=== PATIENT | female | born 1960 | race Caucasian/White ===

== ENCOUNTER 2018-06-26 20:07 | Observation (INO) | payer OTHER ==
--- NOTE | 2018-06-26 21:44 | RADIOLOGY REPORT (SQ) ---
US ABDOMEN LIMITED HISTORY: Right upper quadrant pain. COMPARISON: None. TECHNIQUE: Grayscale and color Doppler imaging of the right upper quadrant was performed. FINDINGS: The liver measures 15.6 cm. Normal liver echogenicity. Mobile shadowing gallstones are seen No pericholecystic fluid or gallbladder wall thickening. Common bile duct measures 5 mm and contains a shadowing echogenic structure which may represent a gallstone. Visualized pancreas is unremarkable. Right kidney measures 10.2 cm in length, without hydronephrosis. Visualized portions of the IVC and aorta are patent. IMPRESSION: Cholelithiasis without evidence of acute cholecystitis. Likely small gallstone in the CBD.
[2018-06-26 22:11] LABS: ABSOLUTE BASOPHILS # (AUTO) 0.1 10^3/uL (0.0-0.2); ABSOLUTE EOSINOPHILS # (AUTO) 0.4 10^3/uL (0.0-0.6); ABSOLUTE LYMPHOCYTES (AUTO) 2.4 10^3/uL (0.5-4.7); ABSOLUTE MONOCYTES (AUTO) 1.1 10^3/uL (0.1-1.4); ABSOLUTE NEUT (AUTO) 12.6 10^3/uL (1.7-8.2); BASOPHILS % (AUTO) 0.4 % (0-2); EOSINOPHILS % (AUTO) 2.4 % (0-6); HEMATOCRIT 41.2 % (36.0-47.0); HEMOGLOBIN 13.7 g/dL (12.0-15.5); LYMPHOCYTES % (AUTO) 14.4 % (13-45); MEAN CORPUSCULAR HEMOGLOBIN 28.7 pg (27.0-33.4); MEAN CORPUSCULAR HGB CONC 33.2 g/dL (32.0-36.0); MEAN CORPUSCULAR VOLUME 86 fl (80-97); MONOCYTES % (AUTO) 6.9 % (3-13); PLATELET COUNT 338 10^3/uL (150-450); RED BLOOD COUNT 4.77 10^6/uL (3.72-5.28); RED CELL DISTRIBUTION WIDTH 17.2 % (11.5-14.0); SEGMENTED NEUTROPHILS % (AUTO) 75.9 % (42-78); TOTAL CELLS COUNTED % (AUTO) 100 %; WHITE BLOOD COUNT 16.7 10^3/uL (4.0-10.5)
[2018-06-26 22:22] LABS: AMORPHOUS SEDIMENT,URINE TRACE /HPF; APPEARANCE,URINE CLOUDY; BILIRUBIN,URINE NEGATIVE (NEGATIVE); COLOR,URINE YELLOW; GLUCOSE, URINE NEGATIVE (NEGATIVE); KETONES,URINE NEGATIVE (NEGATIVE); LEUKOCYTE ESTERASE,URINE NEGATIVE (NEGATIVE); NITRITE,URINE NEGATIVE (NEGATIVE); PROTEIN,URINE NEGATIVE (NEGATIVE); URINE SPECIFIC GRAVITY 1.016
[2018-06-26 22:29] LABS: ALANINE AMINOTRANSFERASE 44 U/L (9-52); ALBUMIN 4.8 g/dL (3.5-5.0); ALKALINE PHOSPHATASE 99 U/L (38-126); ANION GAP 14 (5-19); ASPARTATE AMINO TRANSFERASE 85 U/L (14-36); BILIRUBIN,DIRECT 0.4 mg/dL (0.0-0.4); BILIRUBIN,TOTAL 0.5 mg/dL (0.2-1.3); BLOOD UREA NITROGEN 22 mg/dL (7-20); CALCIUM 9.9 mg/dL (8.4-10.2); CARBON DIOXIDE 28 mmol/L (22-30); CHLORIDE 103 mmol/L (98-107); GLUCOSE 105 mg/dL (75-110); LIPASE 485.3 U/L (23-300); SODIUM 145.1 mmol/L (137-145); TOTAL PROTEIN 8.7 g/dL (6.3-8.2)
[2018-06-26] MEDS ORDERED: METRONIDAZOLE 500 MG/NS RTU 500 MG/100 ML RTUPB IV ONE (23:04)
[2018-06-26] MEDS ORDERED: CEFTRIAXONE INJ 1000 MG VIAL IV ONE (23:04)
[2018-06-26] MEDS ORDERED: KETOROLAC TROMETHAMINE INJ/PF 30 MG/1 ML SDV IV ONE (23:05)
[2018-06-26] MEDS ORDERED: NORMAL SALINE 1000 ML 1,000 ML IV ONE (23:05)
--- NOTE | 2018-06-26 23:29 | ER Document Report ---
ED General - General Chief Complaint: Abdominal Pain >50 Stated Complaint: SIDE/BACK PAIN Time Seen by Provider: 06/26/18 20:51 Notes: Patient is a 57-year-old female without chronic medical problems who presents with right upper and epigastric abdominal pain that started after eating. Patient states that when the pain was present it was a severe, stabbing, aching pain to the upper abdomen that radiated into the upper back. States that the pain has significantly improved since that time. She did not notice that anything in particular seem to resolve her pain. States the pain was triggered by food intake. She has had similar symptoms multiple times in the past related to "a gallbladder problem" but states that multiple evaluations never revealed any stones so the gallbladder was never removed. States that she has had associated nausea and vomiting with this pain today. Denies associated fever or diarrhea. She has not seen her primary care doctor regarding today's concerns. She denies chest pain, shortness of breath, cough. TRAVEL OUTSIDE OF THE [place] IN LAST 30 DAYS: No - Related Data Allergies/Adverse Reactions: Penicillins Allergy (Verified 06/26/18 20:13) Past Medical History - General Information source: Patient - Social History Smoking Status: Current Every Day Smoker Chew tobacco use (# tins/day): No Frequency of alcohol use: Occasional Drug Abuse: None Lives with: Family Family History: Reviewed & Not Pertinent Patient has suicidal ideation: No Patient has homicidal ideation: No Renal/ Medical History: Denies: Hx Peritoneal Dialysis Musculoskeletal Medical History: Reports Hx Arthritis - psoriacic arthritis Past Surgical History: Reports: Hx Appendectomy, Hx Breast Surgery - breast augmentation, Hx Section, Hx Genitourinary Surgery, Hx Hysterectomy, Hx Orthopedic Surgery - laminectomy, spinal fusion, Hx Tonsillectomy Review of Systems - Review of Systems Notes: Constitutional: Negative for fever. HENT: Negative for sore throat. Eyes: Negative for visual changes. Cardiovascular: Negative for chest pain. Respiratory: Negative for shortness of breath. Gastrointestinal: Positive for abdominal pain and vomiting Genitourinary: Negative for dysuria. Musculoskeletal: Negative for back pain. Skin: Negative for rash. Neurological: Negative for headaches, weakness or numbness. 10 point ROS negative except as marked above and in HPI. Physical Exam - Vital signs Vitals: Temp Pulse Resp BP Pulse Ox 97.5 F 68 16 120/67 99 06/26/18 20:31 06/26/18 20:31 06/26/18 20:31 06/26/18 20:31 06/26/18 20:31 Interpretation: Normal Notes: PHYSICAL EXAMINATION: GENERAL: Well-appearing, well-nourished and in no acute distress. HEAD: Atraumatic, normocephalic. EYES: Pupils equal round and reactive to light, extraocular movements intact, sclera anicteric, conjunctiva are normal. ENT: nares patent, oropharynx clear without exudates. Moderate dry mucous membranes. NECK: Normal range of motion, supple without lymphadenopathy LUNGS: Breath sounds clear to auscultation bilaterally and equal. No wheezes rales or rhonchi. HEART: Regular rate and rhythm without murmurs ABDOMEN: Soft, mild tenderness to the right upper quadrant epigastrium otherwise no localized tenderness, normoactive bowel sounds. No guarding, no rebound. No masses appreciated. EXTREMITIES: Normal range of motion, no pitting or edema. No cyanosis. NEUROLOGICAL: No focal neurological deficits. Moves all extremities spontaneously and on command. PSYCH: Normal mood, normal affect. SKIN: Warm, Dry, normal turgor, no rashes or lesions noted. Course - Re-evaluation Re-evalutation: 06/26/18 23:28 Patient presents with right upper quadrant abdominal pain with associated nausea and vomiting. Laboratories show leukocytosis, no significant LFT derangements or elevation of bilirubin. Slight elevation of lipase. Right upper quadrant ultrasound shows evidence of cholelithiasis without evidence of acute cholecystitis. However there is notable possible stone in the common bile duct. This however is not supported by the patient's laboratories itself. I discussed this case with the surgeon compensation expert Dr. Rojas who will evaluate the patient 06/26/18 23:[address] Rojas who is excepted the patient for admission and operative management - Vital Signs Vital signs: Temp Pulse Resp BP Pulse Ox 97.4 F 69 18 132/69 H 98 06/27/18 02:37 06/27/18 02:37 06/27/18 02:37 06/27/18 02:37 06/27/18 02:46 - Laboratory Result Diagrams: 06/26/18 21:55 06/26/18 21:55 Laboratory results interpreted by me: 10/06/26/18 06/26/18 21:51 21:55 21:55 WBC 16.7 H RDW 17.2 H Absolute Neutrophils 12.6 H Sodium 145.1 H BUN 22 H AST 85 H Total Protein 8.7 H Lipase 485.3 H Urine Urobilinogen 2.0 H - Diagnostic Test Radiology reviewed: Reports reviewed Discharge - Discharge Clinical Impression: Symptomatic cholelithiasis, Right upper quadrant abdominal pain Nausea and vomiting Qualifiers: Vomiting type: unspecified Vomiting Intractability: non-intractable Qualified Code(s): R11.2 - Nausea with vomiting, unspecified Condition: Fair Disposition: ADMITTED OBSERVATION Admitting Provider: Surgicalist Unit Admitted: Surgical Floor
--- NOTE | 2018-06-27 00:09 | PDOC H&P ---
History of Present Illness Patient complains of: Abdominal pain, nausea and vomiting History of Present Illness: OMERO MONAHAN is a 57 year old female who was brought to the emergency room by ground rescue plenty of acute onset abdominal pain nausea vomiting anorexia and subcostal pain on the right side which started approximately 630 this evening after having a light meal. There was no diarrhea. She was seen in the emergency department where she found to have right upper quadrant tenderness, leukocytosis, ultrasound showing multiple gallstones, normal common bile duct to 5 mm but a possible common bile duct stone. Surgery was consulted and she was advised admission According the patient she has had over 20 years of postprandial right upper quadrant pain attributed to her gallbladder although her gallbladder was never removed because "" it had no stones. Strong family history of gallbladder problems in her mother, and grandmother who had gallstone pancreatitis. Patient 's last colonoscopy was 5 years ago, reportedly normal. She denies chronic gastrointestinal problems. Past Medical History Past Medical History: Psoriatic arthritis, migraine headaches, hypothyroidism, tonic low back pain. Musculoskeltal Medical History: Reports: Arthritis - psoriacic arthritis Past Surgical History Past Surgical History: Reports: Appendectomy, Section, Hysterectomy, Orthopedic Surgery - laminectomy, spinal fusion, Tonsillectomy Social History Smoking Status: Current Every Day Smoker Hx Recreational Drug Use: No Drugs: None Hx Prescription Drug Abuse: No Family History Parental Family History Reviewed: Yes Children Family History Reviewed: Yes Sibling(s) Family History Reviewed.: Yes Medication/Allergy Allergies/Adverse Reactions: Penicillins Allergy (Verified 06/26/18 20:13) Review of Systems Constitutional: ABSENT: chills, fever(s), headache(s), weight gain, weight loss Eyes: ABSENT: visual disturbances Ears: ABSENT: hearing changes Cardiovascular: ABSENT: chest pain, dyspnea on exertion, edema, orthropnea, palpitations Respiratory: ABSENT: cough, hemoptysis Gastrointestinal: PRESENT: as per HPI Genitourinary: ABSENT: dysuria, hematuria Musculoskeletal: ABSENT: joint swelling Integumentary: ABSENT: rash, wounds Neurological: ABSENT: abnormal gait, abnormal speech, confusion, dizziness, focal weakness, syncope Psychiatric: ABSENT: anxiety, depression, homidical ideation, suicidal ideation Physical Exam Vital Signs: Temp Pulse Resp BP Pulse Ox 97.5 F 68 16 120/67 99 06/26/18 20:31 06/26/18 20:31 06/26/18 20:31 06/26/18 20:31 06/26/18 20:31 Intake & Output 06/25/18 06/26/18 06/27/18 06:59 06:59 06:59 Weight 70.76 kg General appearance: PRESENT: no acute distress Head exam: PRESENT: normocephalic Eye exam: PRESENT: EOMI Mouth exam: PRESENT: dry mucosa Respiratory exam: PRESENT: clear to auscultation keyona Cardiovascular exam: PRESENT: RRR Pulses: PRESENT: normal carotid pulses, normal radial pulses, normal femoral pulses Rectal exam: PRESENT: deferred Musculoskeletal exam: PRESENT: full ROM Neurological exam: PRESENT: alert, awake, oriented to person, oriented to place Results Laboratory Results: 06/26/18 21:55 06/26/18 21:55 06/26/18 06/26/18 06/26/18 21:51 21:55 21:55 WBC 16.7 H RBC 4.77 Hgb 13.7 Hct 41.2 MCV 86 MCH 28.7 MCHC 33.2 RDW 17.2 H Plt Count 338 Seg Neutrophils % 75.9 Lymphocytes % 14.4 Monocytes % 6.9 Eosinophils % 2.4 Basophils % 0.4 Absolute Neutrophils 12.6 H Absolute Lymphocytes 2.4 Absolute Monocytes 1.1 Absolute Eosinophils 0.4 Absolute Basophils 0.1 Sodium 145.1 H Potassium 4.0 Chloride 103 Carbon Dioxide 28 Anion Gap 14 BUN 22 H Creatinine 0.91 Est GFR ( Amer) > 60 Est GFR (Non-Af Amer) > 60 Glucose 105 Calcium 9.9 Total Bilirubin 0.5 AST 85 H ALT 44 Alkaline Phosphatase 99 Total Protein 8.7 H Albumin 4.8 Lipase 485.3 H Urine Color YELLOW Urine Appearance CLOUDY Urine pH 7.0 Ur Specific [place] 1.016 Urine Protein NEGATIVE Urine Glucose (UA) NEGATIVE Urine Ketones NEGATIVE Urine Blood NEGATIVE Urine Nitrite NEGATIVE Ur Leukocyte Esterase NEGATIVE Impressions: Abdomen Ultrasound 06/26/18 20:51 IMPRESSION: Cholelithiasis without evidence of acute cholecystitis. Likely small gallstone in the CBD. Assessment & Plan - Diagnosis (1) Gallstone pancreatitis Is this a current diagnosis for this admission?: Yes Plan: Impression: Acute cholecystitis, cholelithiasis, likely gallstone pancreatitis; symptomatically improving; no evidence of sepsis I: Intermediate level of suspicion for common bile duct stone Recommendations: 1. Admit, IV fluids, n.p.o., intravenous antibiotics 2. We will check chest x-ray, EKG 3. We will repeat labs, tract lipase level. 4. Patient will benefit from interval laparoscopic cholecystectomy, possible open cholecystectomy with intraoperative cholangiography. The possibility of retained common bile duct stone with the need for postoperative ERCP discussed with patient. 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 This is under the direction of Dr. Carmichael of [place], vibrating screen operator. (6) Hypothyroidism Is this a current diagnosis for this admission?: Yes (7) Smoker Is this a current diagnosis for this admission?: Yes - Time Time Spent: 30 to 50 Minutes Smoking Cessation Education: over 10 minutes Medications reviewed and adjusted accordingly: Yes Anticipated discharge: Home - Inpatient Certification Based on my medical assessment, after consideration of the patient's comorbidities, presenting symptoms, or acuity I expect that the services needed warrant INPATIENT care.: Yes I certify that my determination is in accordance with my understanding of Medicare's requirements for reasonable and necessary INPATIENT services [42 CFR 412.3e].: Yes Medical Necessity: Need For IV Fluids, Need for Pain Control, Need for IV Antibiotics, Need for Surgery
[2018-06-27] MEDS ORDERED: KETOROLAC TROMETHAMINE 10 MG TABLET PO PRN (00:14)
[2018-06-27] MEDS ORDERED: KETOROLAC TROMETHAMINE INJ/PF 30 MG/1 ML SDV IV PRN (00:14)
[2018-06-27] MEDS ORDERED: ONDANSETRON HCL INJ/PF 4 MG/2 ML SDV IV PRN (00:14)
[2018-06-27] MEDS: RINGERS SOLUTION,LACTATED 1,000 ML IV PRN ×4 (02:03→17:40)
[2018-06-27] MEDS: CIPROFLOXACIN 400 MG/D5W RTU 400 MG/200 ML RTUPB IV SCH ×2 (10:50→21:40)
[2018-06-27] MEDS: MORPHINE SULFATE 10 MG/ML INJ IV PRN ×2 (10:58→17:44)
--- NOTE | 2018-06-27 12:44 | RADIOLOGY REPORT (SQ) ---
EXAM DESCRIPTION: CHEST 2 VIEWS COMPLETED DATE/TIME: 06/27/2018 8:27 am REASON FOR STUDY: preop COMPARISON: None. EXAM PARAMETERS: NUMBER OF VIEWS: two views TECHNIQUE: Digital Frontal and Lateral radiographic views of the chest acquired. RADIATION DOSE: NA LIMITATIONS: none FINDINGS: LUNGS AND PLEURA: No opacities, masses or pneumothorax. No pleural effusion. MEDIASTINUM AND HILAR STRUCTURES: No masses or contour abnormalities. HEART AND VASCULAR STRUCTURES: Heart normal size. No evidence for failure. BONES: No acute findings. HARDWARE: None in the chest. OTHER: No other significant finding. IMPRESSION: NO ACUTE RADIOGRAPHIC FINDING IN THE CHEST. TECHNICAL DOCUMENTATION: JOB ID: [id number] [employer]- All Rights Reserved Reading location - IP/workstation name: [email or web address]
[2018-06-27 14:48] LABS: ALANINE AMINOTRANSFERASE 41 U/L (9-52); ALBUMIN 3.3 g/dL (3.5-5.0); ALKALINE PHOSPHATASE 74 U/L (38-126); ANION GAP 8 (5-19); ASPARTATE AMINO TRANSFERASE 43 U/L (14-36); BILIRUBIN,DIRECT 0.2 mg/dL (0.0-0.4); BILIRUBIN,TOTAL 0.4 mg/dL (0.2-1.3); BLOOD UREA NITROGEN 17 mg/dL (7-20); CALCIUM 8.4 mg/dL (8.4-10.2); CARBON DIOXIDE 24 mmol/L (22-30); CHLORIDE 109 mmol/L (98-107); GLUCOSE 87 mg/dL (75-110); LIPASE 75.4 U/L (23-300); POTASSIUM 4.3 mmol/L (3.6-5.0); SODIUM 140.5 mmol/L (137-145); TOTAL PROTEIN 6.3 g/dL (6.3-8.2)
[2018-06-28] MEDS: MORPHINE SULFATE 10 MG/ML INJ IV PRN (00:20)
[2018-06-28] MEDS: RINGERS SOLUTION,LACTATED 1,000 ML IV PRN (03:32)
[2018-06-28 06:24] LABS: ABSOLUTE BASOPHILS # (AUTO) 0.1 10^3/uL (0.0-0.2); ABSOLUTE EOSINOPHILS # (AUTO) 0.4 10^3/uL (0.0-0.6); ABSOLUTE LYMPHOCYTES (AUTO) 3.6 10^3/uL (0.5-4.7); ABSOLUTE MONOCYTES (AUTO) 0.6 10^3/uL (0.1-1.4); ABSOLUTE NEUT (AUTO) 3.7 10^3/uL (1.7-8.2); BASOPHILS % (AUTO) 0.8 % (0-2); EOSINOPHILS % (AUTO) 4.6 % (0-6); HEMATOCRIT 34.2 % (36.0-47.0); LYMPHOCYTES % (AUTO) 43.3 % (13-45); MEAN CORPUSCULAR HEMOGLOBIN 28.8 pg (27.0-33.4); MEAN CORPUSCULAR HGB CONC 33.5 g/dL (32.0-36.0); MEAN CORPUSCULAR VOLUME 86 fl (80-97); MONOCYTES % (AUTO) 6.7 % (3-13); PLATELET COUNT 242 10^3/uL (150-450); RED BLOOD COUNT 3.97 10^6/uL (3.72-5.28); RED CELL DISTRIBUTION WIDTH 17.5 % (11.5-14.0); SEGMENTED NEUTROPHILS % (AUTO) 44.6 % (42-78); TOTAL CELLS COUNTED % (AUTO) 100 %; WHITE BLOOD COUNT 8.3 10^3/uL (4.0-10.5)
[2018-06-28 06:33] LABS: HEMOGLOBIN 11.5 g/dL (12.0-15.5)
[2018-06-28 06:47] LABS: ALANINE AMINOTRANSFERASE 33 U/L (9-52); ALBUMIN 3.6 g/dL (3.5-5.0); ALKALINE PHOSPHATASE 76 U/L (38-126); ANION GAP 10 (5-19); ASPARTATE AMINO TRANSFERASE 31 U/L (14-36); BILIRUBIN,DIRECT 0.1 mg/dL (0.0-0.4); BILIRUBIN,TOTAL 0.3 mg/dL (0.2-1.3); BLOOD UREA NITROGEN 12 mg/dL (7-20); CALCIUM 8.5 mg/dL (8.4-10.2); CARBON DIOXIDE 26 mmol/L (22-30); CHLORIDE 107 mmol/L (98-107); GLUCOSE 78 mg/dL (75-110); LIPASE 57.3 U/L (23-300); POTASSIUM 4.2 mmol/L (3.6-5.0); SODIUM 143.3 mmol/L (137-145); TOTAL PROTEIN 6.6 g/dL (6.3-8.2)
[2018-06-28] MEDS ORDERED: BUPIVACAINE HCL 0.5 % INJ/PF 30 ML SDV ONE (08:07)
[2018-06-28] MEDS ORDERED: MORPHINE SULFATE 10 MG/ML INJ ONE (08:21)
[2018-06-28] MEDS ORDERED: ONDANSETRON HCL INJ/PF 4 MG/2 ML SDV ONE (08:21)
[2018-06-28] MEDS ORDERED: DEXAMETHASONE SOD PHOSPHATE INJ 4 MG/1 ML VIAL ONE (08:21)
[2018-06-28] MEDS ORDERED: MIDAZOLAM 2 MG/2 ML INJ ONE (08:21)
[2018-06-28] MEDS ORDERED: FENTANYL CITRATE INJ/PF 100 MCG/2 ML AMPUL ONE (08:21)
[2018-06-28] MEDS ORDERED: ACETAMINOPHEN 1,000 MG/100 ML RTUPB IV ONE (08:22)
[2018-06-28] MEDS ORDERED: PROPOFOL INJ 200 MG/20 ML VIAL IV ONE (08:22)
[2018-06-28] MEDS ORDERED: IPRATROPIUM/ALBUTEROL 0.5-2.5 MG/3 ML AMPUL NEB ONE ×2 (08:24→08:28)
[2018-06-28] MEDS ORDERED: NEOSTIGMINE METHYLSULFATE 10 MG/10 ML VIAL ONE (08:40)
[2018-06-28] MEDS ORDERED: SCOPOLAMINE HYDROBROMIDE 1.5 MG PATCH.TD72 ONE (08:40)
[2018-06-28] MEDS ORDERED: SUCCINYLCHOLINE CHLORIDE INJ 200 MG/10 ML VIAL ONE (08:40)
[2018-06-28] MEDS ORDERED: GLYCOPYRROLATE 1 MG/5 ML SYRINGE ONE (08:40)
[2018-06-28] MEDS ORDERED: ROCURONIUM BROMIDE INJ 50 MG/5 ML VIAL IV ONE (08:40)
--- NOTE | 2018-06-28 08:59 | PDOC PROGRESS REPORT ---
Subjective Progress Note for:: 06/28/18 Subjective:: There is a 57-year-old female with biliary pancreatitis. She is feeling much better today. Her lab work is essentially normal. Denies nausea, vomiting, fevers, chills, melena, hematochezia, chest pain, shortness of breath, dizziness , orthostasis, malaise, blurry vision, or fatigue. She does report right upper quadrant abdominal pain. Reason For Visit: GALLSTONE PANCREATITUS Physical Exam Vital Signs: Temp Pulse Resp BP Pulse Ox 97.5 F 51 L 12 103/56 L 100 06/28/18 07:26 06/28/18 07:26 06/28/18 07:26 06/28/18 07:26 06/28/18 07:26 Intake & Output 06/27/18 06/28/18 06/29/18 06:59 06:59 06:59 Intake Total 1343 4111 Output Total 0 675 Balance 1343 3436 Weight 72.7 kg 76.4 kg General appearance: PRESENT: no acute distress Head exam: PRESENT: atraumatic, normocephalic Eye exam: PRESENT: EOMI, PERRLA Mouth exam: PRESENT: moist, neck supple Neck exam: ABSENT: meningismus, tenderness, thyromegaly, tracheal deviation Respiratory exam: PRESENT: clear to auscultation keyona, unlabored. ABSENT: chest wall tenderness, tachypnea Cardiovascular exam: PRESENT: RRR Pulses: PRESENT: normal radial pulses Vascular exam: PRESENT: normal capillary refill. ABSENT: pallor GI/Abdominal exam: PRESENT: tenderness - Upper quadrant/epigastrium. ABSENT: distended, firm Rectal exam: PRESENT: deferred Extremities exam: ABSENT: clubbing Musculoskeletal exam: ABSENT: deformity Neurological exam: PRESENT: alert, awake, oriented to person, oriented to place , oriented to time, oriented to situation, CN II-XII grossly intact Psychiatric exam: ABSENT: agitated, anxious, depressed Focused psych exam: ABSENT: delusional Skin exam: ABSENT: cyanosis, erythema, jaundice Results Laboratory Results: 06/28/18 05:25 06/28/18 05:25 06/27/18 06/28/18 06/28/18 13:40 05:25 05:25 WBC 8.3 RBC 3.97 Hgb 11.5 L D Hct 34.2 L MCV 86 MCH 28.8 MCHC 33.5 RDW 17.5 H Plt Count 242 Seg Neutrophils % 44.6 Lymphocytes % 43.3 Monocytes % 6.7 Eosinophils % 4.6 Basophils % 0.8 Absolute Neutrophils 3.7 Absolute Lymphocytes 3.6 Absolute Monocytes 0.6 Absolute Eosinophils 0.4 Absolute Basophils 0.1 Sodium 140.5 143.3 Potassium 4.3 4.2 Chloride 109 H 107 Carbon Dioxide 24 26 Anion Gap 8 10 BUN 17 12 Creatinine 0.70 0.69 Est GFR ( Amer) > 60 > 60 Est GFR (Non-Af Amer) > 60 > 60 Glucose 87 78 Calcium 8.4 8.5 Total Bilirubin 0.4 0.3 AST 43 H 31 ALT 41 33 Alkaline Phosphatase 74 76 Total Protein 6.3 6.6 Albumin 3.3 L 3.6 Lipase 75.4 57.3 Impressions: Abdomen Ultrasound 06/26/18 20:51 IMPRESSION: Cholelithiasis without evidence of acute cholecystitis. Likely small gallstone in the CBD. Chest X-Ray 06/27/18 08:00 IMPRESSION: NO ACUTE RADIOGRAPHIC FINDING IN THE CHEST. Assessment & Plan - Diagnosis (1) Gallstone pancreatitis Is this a current diagnosis for this admission?: Yes - Plan Summary Plan Summary: There is a 57-year-old female with biliary pancreatitis. Her lab work is much improved. I have recommended surgical intervention. I plan to perform laparoscopic cholecystectomy with intraoperative cholangiogram. The patient has agreed to this. Risks/benefits discussed, informed consent obtained, and all questions answered.
[2018-06-28] MEDS ORDERED: DIPHENHYDRAMINE HCL 50 MG/ML VIAL IV PRN (09:20)
[2018-06-28] MEDS ORDERED: MEPERIDINE HCL/PF INJ 25 MG/1 ML DISP.SYRIN IV PRN (09:20)
[2018-06-28] MEDS ORDERED: FENTANYL CITRATE INJ/PF 100 MCG/2 ML AMPUL IV PRN ×3 (09:20)
[2018-06-28] MEDS ORDERED: MORPHINE SULFATE 10 MG/ML INJ IV PRN (09:20)
[2018-06-28] MEDS ORDERED: PROMETHAZINE HCL INJ 25 MG/1 ML VIAL IV PRN ×2 (09:20)
--- NOTE | 2018-06-28 10:04 | EKG REPORT ---
SEVERITY:- OTHERWISE NORMAL ECG - SINUS BRADYCARDIA : Confirmed by: Annika Pickett 28-Jun-2018 10:03:09
[2018-06-28] MEDS ORDERED: HYDROCODONE/ACETAMINOPHEN 10-325 MG TABLET PO PRN (11:04)
[2018-06-28] MEDS: CIPROFLOXACIN 400 MG/D5W RTU 400 MG/200 ML RTUPB IV SCH (11:05)
--- NOTE | 2018-06-28 11:54 | RADIOLOGY REPORT (SQ) ---
EXAM DESCRIPTION: NO CHG FLUORO; CHOLANGIOGRAM OPERATIVE COMPLETED DATE/TIME: 06/28/2018 9:56 am REASON FOR STUDY: BLOCKAGE COMPARISON: None. FLUOROSCOPY TIME: 1.0 minutes 2 images saved to PACS. TECHNIQUE: Spot fluoroscopic images were obtained from an intraoperative cholangiogram. LIMITATIONS: None. FINDINGS: There is opacification of the bile ducts, cystic duct remnants and second portion of the d uodenum without evidence of fixed filling defect or significant extravasation. IMPRESSION: INTRAOPERATIVE CHOLANGIOGRAM. COMMENT: Quality ID 145: Final reports for procedures using fluoroscopy that document radiation exp osure indices, or exposure time and number of fluorographic images (if radiation exposure indices are not available) TECHNICAL DOCUMENTATION: JOB ID: [id number] [employer]- All Rights Reserved Reading location - IP/workstation name: [email or web address]
--- NOTE | 2018-06-28 11:54 | RADIOLOGY REPORT (SQ) ---
EXAM DESCRIPTION: NO CHG FLUORO; CHOLANGIOGRAM OPERATIVE COMPLETED DATE/TIME: 06/28/2018 9:56 am REASON FOR STUDY: BLOCKAGE COMPARISON: None. FLUOROSCOPY TIME: 1.0 minutes 2 images saved to PACS. TECHNIQUE: Spot fluoroscopic images were obtained from an intraoperative cholangiogram. LIMITATIONS: None. FINDINGS: There is opacification of the bile ducts, cystic duct remnants and second portion of the d uodenum without evidence of fixed filling defect or significant extravasation. IMPRESSION: INTRAOPERATIVE CHOLANGIOGRAM. COMMENT: Quality ID 145: Final reports for procedures using fluoroscopy that document radiation exp osure indices, or exposure time and number of fluorographic images (if radiation exposure indices are not available) TECHNICAL DOCUMENTATION: JOB ID: [id number] [employer]- All Rights Reserved Reading location - IP/workstation name: [email or web address]
[2018-06-28] MEDS: KETOROLAC TROMETHAMINE 10 MG TABLET PO PRN ×2 (16:27→22:28)
--- NOTE | 2018-06-28 19:36 | Operative Report ---
Nonrecallable Operative Report DATE OF SURGERY: 06/28/18 PREOPERATIVE DIAGNOSIS: 1 biliary pancreatitis. 2. Possible choledocholithiasis POSTOPERATIVE DIAGNOSIS: 1. Biliary pancreatitis. 2. No evidence of choledocholithiasis. OPERATION: Laparoscopic cholecystectomy with intraoperative cholangiogram. SURGEON: WILBERTO PRESSLEY ANESTHESIA: GA TISSUE REMOVED OR ALTERED: Gallbladder COMPLICATIONS: None apparent ESTIMATED BLOOD LOSS: Minimal PROCEDURE: Drains/implants: None. Procedure in detail: After informed consent was obtained, the patient was brought into the operating room and laid in the supine position. The area of the abdomen was prepped and draped in a normal sterile fashion. A periumbilical incision was created using a 15 blade scalpel. Dissection was carried through the subcutaneous tissue using sharp and blunt dissection. The cicatrix was identified, grasped with a Gill clamp, and retracted upwards. The linea alba fascia was incised sharply, the abdomen was entered sharply. The balloon trocar was inserted, and pneumoperitoneum was achieved. A 5 mm subxiphoid port was placed under direct laparoscopic visualization. 2 more 5 mm ports were placed in the right upper quadrant in similar fashion. Atraumatic graspers were placed through the 5 mm ports. The gallbladder was retracted cephalad and laterally. Dissection was begun in the triangle of [place]. The cystic duct and cystic artery were fully visualized and skeletonized , seeing the liver through the triangle. Once the critical view of safety was obtained, the cystic artery was clipped and cut with laparoscopic instruments. Next a clip was placed on the infundibulum side of the cystic duct, and a small ductotomy was created. The Arrow cholangiogram catheter was inserted into the cystic duct and a cholangiogram was obtained. The cholangiogram demonstrated filling of the common bile duct, common hepatic duct, right and left hepatic ducts, and their radicals. There were no obvious filling defects present within the bile ducts. Contrast moved freely into the duodenum. Once this was confirmed, the cholangiogram catheter was removed. Clips were placed on the cystic duct, and the duct was divided. The gallbladder was removed from the liver using Bovie electrocautery. The gallbladder was grasped with a large clamp, and pulled out through the umbilicus. The camera was reinserted. The hilum was inspected. It was found to be free of any leakage of blood or bile. Next, the 5 mm trochars were removed under direct laparoscopic visualization. The periumbilical trocar was removed, and pneumoperitoneum was relieved. The umbilical fascia was closed using 0 Vicryl suture in [id number] fashion. The overlying skin was closed using 4-0 Vicryl Rapide suture in subcuticular fashion. All sponge, instrument, and needle counts were correct x2. Condition: Stable.
[2018-06-29] MEDS: KETOROLAC TROMETHAMINE 10 MG TABLET PO PRN (05:09)
--- NOTE | 2018-06-29 06:34 | PDOC DISCHARGE SUMMARY ---
General - Admit/Disc Date/PCP Admission Date/Primary Care Provider: 06/27/18 00:09 Discharge Date: 06/29/18 - Discharge Diagnosis (1) Gallstone pancreatitis Is this a current diagnosis for this admission?: Yes - Additional Information Resuscitation Status: Full Code Discharge Diet: As Tolerated Discharge Activity: No Lifting Over 10 Pounds Home Medications: Cetirizine HCl [Zyrtec 10 mg Tablet] 1 tab PO DAILY 06/27/18 Duloxetine HCl [Cymbalta] 30 mg PO QHS 06/27/18 Estradiol [Estrace] 1.5 mg PO DAILY 06/27/18 Folic Acid 1 mg PO DAILY 06/27/18 Levothyroxine Sodium [Levoxyl] 88 mcg PO DAILY 06/27/18 Meloxicam 15 mg PO DAILY 06/27/18 Methotrexate Sodium [Methotrexate] 12.5 mg PO SA@1000 06/27/18 Secukinumab [Cosentyx Pen] 150 mg SQ [id number] 06/27/18 Topiramate [Topamax 100 Mg Tablet] 100 mg PO QHS 06/27/18 History of Present Illness History of Present Illness: OMERO MONAHAN is a 57 year old female admitted with biliary pancreatitis. The patient was admitted to the surgical floor and kept n.p.o. with the intent of surgical intervention. Hospital Course Hospital Course: The patient was admitted to the floor. Over the subsequent days her lipase trended downward, and she began to feel better. By 06/28/2018, the patient was doing well. She was taken to the operating room for laparoscopic cholecystectomy with intraoperative cholangiogram. Her surgery went well, without complication. The patient was taken to the floor afterwards in stable condition. By 06/29/2018 the patient was ambulating, tolerating a diet, and her pain was controlled with oral pain medications. At this time it was felt that she had reached maximal hospital benefit and was fit for discharge. Physical Exam Vital Signs: Temp Pulse Resp BP Pulse Ox 98.3 F 48 L 17 102/46 L 98 06/28/18 22:55 06/28/18 22:55 06/28/18 22:55 06/28/18 22:55 06/28/18 22:55 Intake & Output 06/27/18 06/28/18 06/29/18 06:59 06:59 06:59 Intake Total 1343 4111 3060 Output Total 0 675 2385 Balance 1343 3436 675 Weight 72.7 kg 76.4 kg 77.3 kg Results Laboratory Results: 06/28/18 05:25 06/28/18 05:25 06/28/18 06/28/18 05:25 05:25 WBC 8.3 RBC 3.97 Hgb 11.5 L D Hct 34.2 L MCV 86 MCH 28.8 MCHC 33.5 RDW 17.5 H Plt Count 242 Seg Neutrophils % 44.6 Lymphocytes % 43.3 Monocytes % 6.7 Eosinophils % 4.6 Basophils % 0.8 Absolute Neutrophils 3.7 Absolute Lymphocytes 3.6 Absolute Monocytes 0.6 Absolute Eosinophils 0.4 Absolute Basophils 0.1 Sodium 143.3 Potassium 4.2 Chloride 107 Carbon Dioxide 26 Anion Gap 10 BUN 12 Creatinine 0.69 Est GFR ( Amer) > 60 Est GFR (Non-Af Amer) > 60 Glucose 78 Calcium 8.5 Total Bilirubin 0.3 AST 31 ALT 33 Alkaline Phosphatase 76 Total Protein 6.6 Albumin 3.6 Lipase 57.3 Impressions: Abdomen Ultrasound 06/26/18 20:51 IMPRESSION: Cholelithiasis without evidence of acute cholecystitis. Likely small gallstone in the CBD. Chest X-Ray 06/27/18 08:00 IMPRESSION: NO ACUTE RADIOGRAPHIC FINDING IN THE CHEST. Cholangiogram 06/28/18 00:00 IMPRESSION: INTRAOPERATIVE CHOLANGIOGRAM. Fluoroscopy 06/28/18 00:00 IMPRESSION: INTRAOPERATIVE CHOLANGIOGRAM. Qualifiers - * PATIENT BEING DISCHARGED WITH ANY OF THE FOLLOWING DIAGNOSIS: No Plan Discharge Plan: Discharge home. Diet as tolerated. Activity: No lifting greater than 10 pounds x 2 weeks. Toradol 10 mg p.o. every 6 hours as needed for pain. Follow- up with me in 7-10 days. Okay to shower on Friday. No tub baths or swimming times 2 weeks. Time Spent: Less than 30 Minutes
[2018-06-29 08:37] VITALS: BP 126/53
== END 2018-06-29 09:33 | disposition home or self-care (01) ==
LOC: ER 20:07 → EH 06-27 00:09 → 4N 06-27 03:10
PROVIDERS: ATTEND Surgery
PROC: HZ31ZZZ Individual Counseling for Substance Abuse Treatment, Behavioral (ICD-10-PCS; principal; 2018-06-27)
PROC: 0FT44ZZ Resection of Gallbladder, Percutaneous Endoscopic Approach (ICD-10-PCS; 2018-06-28)
PROC: BF101ZZ Fluoroscopy of Bile Ducts using Low Osmolar Contrast (ICD-10-PCS; 2018-06-28)
DX: K80.10 Calculus of gallbladder with chronic cholecystitis without obstruction (principal); L40.50 Arthropathic psoriasis, unspecified; G43.909 Migraine, unspecified, not intractable, without status migrainosus; E03.9 Hypothyroidism, unspecified; F17.200 Nicotine dependence, unspecified, uncomplicated; Z79.899 Other long term (current) drug therapy; Z83.79 Family history of other diseases of the digestive system; Z90.49 Acquired absence of other specified parts of digestive tract; Z90.710 Acquired absence of both cervix and uterus
CPT/HCPCS: 99285; 96361; 96375; 96365; 96367; 36415 ×3; 87040; 83690 ×3; 85025 ×2; 80053 ×3; 81001; 88304 ×2; 71046; 74300; 76705; 93005; 93010; 99407; 47563; G0378 ×4; Q9967; J2250; J3490 ×5; J1100; J3010; J1885; J2270 ×2; J0330; J0696; J2405; J7030; J7120 ×2; J2704; J0744; J7620; J0131; 790

== ENCOUNTER 2019-11-21 12:55 | Emergency (ER) | payer OTHER ==
[2019-11-21] MEDS ORDERED: KETOROLAC TROMETHAMINE 60 MG/2 ML SDV IM ONE (13:12)
[2019-11-21] MEDS ORDERED: NORMAL SALINE 1000 ML 1,000 ML IV PRN (13:12)
[2019-11-21] MEDS ORDERED: KETOROLAC TROMETHAMINE INJ/PF 30 MG/1 ML SDV IV ONE (13:18)
--- NOTE | 2019-11-21 13:18 | ER Document Report ---
ED Medical Screen (RME) - General Chief Complaint: Flank Pain Stated Complaint: FLANK PAIN Time Seen by Provider: 11/21/19 13:11 Information source: Patient TRAVEL OUTSIDE OF THE [place] IN LAST 30 DAYS: No - HPI Notes: 11/21/19 13:17 This 59-year-old female presented emergency room today with right-sided flank pain radiating around to the groin she thinks it is a kidney stone as she has had one before she last had a CAT scan many years ago - Related Data Allergies/Adverse Reactions: Penicillins Allergy (Verified 11/21/19 13:13) Past Medical History - Social History Chew tobacco use (# tins/day): No Frequency of alcohol use: Occasional Drug Abuse: None Renal/ Medical History: Denies: Hx Peritoneal Dialysis Musculoskeltal Medical History: Reports Hx Arthritis - psoriacic arthritis Psychiatric Medical History: Denies: Hx Depression Past Surgical History: Reports: Hx Appendectomy, Hx Breast Surgery - breast augmentation, Hx Section, Hx Genitourinary Surgery, Hx Hysterectomy, Hx Orthopedic Surgery - laminectomy, spinal fusion, Hx Tonsillectomy Physical Exam - Vital signs Vitals: Temp Pulse Resp BP Pulse Ox 98.1 F 69 18 148/79 H 98 11/21/19 13:00 11/21/19 13:00 11/21/19 13:00 11/21/19 13:00 11/21/19 13:00 - Abdominal Inspection: Normal Distension: No distension Bowel sounds: Normal Tenderness: Nontender Organomegaly: No organomegaly Course - Vital Signs Vital signs: Temp Pulse Resp BP Pulse Ox 98.1 F 69 18 148/79 H 98 11/21/19 13:00 11/21/19 13:00 11/21/19 13:00 11/21/19 13:00 11/21/19 13:00
[2019-11-21] MEDS ORDERED: ONDANSETRON HCL INJ/PF 4 MG/2 ML SDV IV ONE (13:22)
[2019-11-21] MEDS ORDERED: TAMSULOSIN HCL 0.4 MG CAP.SR.24H PO ONE (13:26)
--- NOTE | 2019-11-21 13:28 | ER Document Report ---
ED General - General Chief Complaint: Flank Pain Stated Complaint: FLANK PAIN Time Seen by Provider: 11/21/19 13:11 TRAVEL OUTSIDE OF THE [place]. IN LAST 30 DAYS: No - HPI Notes: Patient is a 59-year-old female with a history of kidney stones presents complaining of sudden onset right flank pain that radiates around into her groin that began at 6 AM today. Patient states that she has had nausea and vomiting associated as well. The pain is intermittent. Patient states that she does have urinary urgency. No other vaginal bleeding, odor, discharge. She is able to eat and drink, but does have decreased p.o. intake. She is having normal bowel movements. Denies any headache, fever, neck pain, URI, sore throat, chest pain, palpitations, syncope, cough, shortness of breath, wheeze, dyspnea, diarrhea, urinary retention, loss of control of bowel or bladder, numbness/tingling, saddle anesthesia, muscle paralysis/weakness, or rash. - Related Data Allergies/Adverse Reactions: Penicillins Allergy (Verified 11/21/19 14:03) Past Medical History - General Information source: Patient - Social History Smoking Status: Current Every Day Smoker Chew tobacco use (# tins/day): No Frequency of alcohol use: Occasional Drug Abuse: None Family History: Reviewed & Not Pertinent Patient has suicidal ideation: No Patient has homicidal ideation: No Renal/ Medical History: Denies: Hx Peritoneal Dialysis Musculoskeletal Medical History: Reports Hx Arthritis - psoriacic arthritis Psychiatric Medical History: Denies: Hx Depression Past Surgical History: Reports: Hx Appendectomy, Hx Breast Surgery - breast augmentation, Hx Section, Hx Genitourinary Surgery, Hx Hysterectomy, Hx Orthopedic Surgery - laminectomy, spinal fusion, Hx Tonsillectomy Review of Systems - Review of Systems -: Yes All other systems reviewed and negative Physical Exam - Vital signs Vitals: Temp Pulse Resp BP Pulse Ox 98.1 F 69 18 148/79 H 98 11/21/19 13:00 11/21/19 13:00 11/21/19 13:00 11/21/19 13:00 11/21/19 13:00 - Notes Notes: PHYSICAL EXAMINATION: GENERAL: Well-appearing, well-nourished and in no acute distress. LUNGS: Breath sounds clear to auscultation bilaterally and equal. No wheezes rales or rhonchi. HEART: Regular rate and rhythm without murmurs, rubs, gallops. ABDOMEN: Soft, nontender, nondistended abdomen. No guarding, no rebound. Normal bowel sounds present. + right CVA tenderness. Musculoskeletal: FROM to passive/active. Strength 5+/5. Extremities: No cyanosis, clubbing, or edema b/l. Peripheral pulses 2+. Capillary refill less than 3 seconds. NEUROLOGICAL: Normal speech, normal gait. Normal sensory, motor exams PSYCH: Normal mood, normal affect. SKIN: Warm, Dry, normal turgor, no rashes or lesions noted. Course - Re-evaluation Re-evalutation: 11/21/19 15:42 I did review with Dr. Crouch, Urology, who agrees with dispo/plan: Patient is an afebrile, well-hydrated, 59-year-old female who presents to the ED with a 2mm ureteral stone to the rt side with hydronephrosis. Vitals are acceptable without any significant tachycardia, tachypnea, or hypoxia. PE is otherwise unremarkable. CMP unremarkable for acute pathology. CBC has leukocytosis, but she is on steroids and has been vomiting as well. UA looks like a UTI. UC pending. Patient was given Zofran and toradol as well as fluids. See CT report. No other labs or imaging warranted at this time based on H&P. Patient is tolerating p.o. without difficulties and is nontoxic- appearing. Low suspicion/risk for urosepsis, acute appendicitis, bowel obstruction, acute cholecystitis, perforated diverticulitis, incarcerated hernia, pancreatitis, perforated ulcer, peritonitis, sepsis, testicular torsion, or other systemic emergent condition at this time. Patient is aware that this condition can change from initial presentation and she needs to monitor symptoms closely and seek medical attention if any acute changes. I will send him home with a prescription for zofran, flomax, keflex, and morphine IR. If she develops any fever to come back to the ED or go to [facility] ED. Conservative measures otherwise for symptoms. Recheck with PCM in 2-3 days. Schedule consult with urologist. Return to the ED with any worsening/concerning symptoms otherwise as reviewed in discharge. Patient is in agreement. - Vital Signs Vital signs: Temp Pulse Resp BP Pulse Ox 98.1 F 69 18 148/79 H 98 11/21/19 13:00 11/21/19 13:00 11/21/19 13:00 11/21/19 13:00 11/21/19 13:00 - Laboratory Result Diagrams: 11/21/19 13:53 11/21/19 13:53 Laboratory results interpreted by me: 11/21/19 11/21/19 11/21/19 13:15 13:53 13:53 WBC 13.9 H RDW 15.7 H Lymph % (Auto) 8.7 L Absolute Neuts (auto) 11.5 H Seg Neutrophils % 82.9 H Sodium 136.4 L Urine Blood LARGE H Urine Nitrite (Reflex) POSITIVE H Urine Urobilinogen 2.0 H Urine Ascorbic Acid 40 H Discharge - Discharge Clinical Impression: Right ureteral stone Condition: Stable Disposition: HOME, SELF-CARE Additional Instructions: Push fluids (i.e. water, cranberry juice) Proper hygenic technique Keep the skin clean Tylenol/ibuprofen as needed Take medications as directed F/u with your PCM in 2-3 days for a recheck Call urology tomorrow to schedule an appointment for further evaluation and management--should you develop any fever to return to the emergency department or go to [facility] emergency department where they have urology available. Return to the ED with any worsening symptoms and/or development of fever, headache, chest pain, palpitations, syncope, shortness of breath, trouble breathing, abdominal pain, n/v/d, blood in stool/urine, loss of control of bowel/bladder, urinary retention, or other worsening symptoms that are concerning to you. Prescriptions: Tamsulosin HCl [Flomax] 0.4 mg PO DAILY #10 cap.er.24h Cephalexin Monohydrate [Keflex 500 mg Capsule] 500 mg PO TID #21 capsule Morphine Sulfate [Morphine Ir 15 Mg Tablet] 15 mg PO TID #12 tablet Ondansetron [Zofran Odt 4 mg Tablet] 1 - 2 tab PO Q4H PRN #15 tab.rapdis PRN Reason: For Nausea/Vomiting Forms: Elevated Blood Pressure Referrals: WAYNE CROUCH MD [NO LOCAL MD] - Follow up as needed [facility] [Provider Group] - Follow up in 3-5 days
[2019-11-21 13:40] LABS: APPEARANCE,URINE CLEAR; BILIRUBIN,URINE NEGATIVE (NEGATIVE); COLOR,URINE AMBER; GLUCOSE, URINE NEGATIVE (NEGATIVE); KETONES,URINE NEGATIVE (NEGATIVE); PROTEIN,URINE NEGATIVE (NEGATIVE)
--- NOTE | 2019-11-21 13:55 | RADIOLOGY REPORT (SQ) ---
EXAM DESCRIPTION: CT ABD/PELVIS NO ORAL OR IV COMPLETED DATE/TIME: 11/21/2019 1:33 pm REASON FOR STUDY: Rt flank pain COMPARISON: None. TECHNIQUE: CT scan of the abdomen and pelvis performed without intravenous or oral contrast. Images reviewed with lung, soft tissue, and bone windows. Reconstructed coronal and sagittal MPR images revi ewed. All images stored on PACS. All CT scanners at this facility use dose modulation, iterative reconstruction, and/or weight based d osing when appropriate to reduce radiation dose to as low as reasonably achievable (ALARA). [facility]: Dose Right [facility]: CareDose [facility]: Dose Right [facility]: Teradose 4D [facility]: Smart Cogo RADIATION DOSE: CT Rad equipment meets quality standard of care and radiation dose reduction techniq ues were employed. CTDIvol: 7.7 mGy. DLP: 370 mGy-cm.mGy. LIMITATIONS: None. FINDINGS: LOWER CHEST: No significant findings. No nodules or infiltrates. NON-CONTRASTED LIVER, SPLEEN, ADRENALS: Evaluation limited by lack of IV contrast. No identified sign ificant masses. PANCREAS: No masses. No peripancreatic inflammatory changes. GALLBLADDER: Surgically absent. RIGHT KIDNEY AND URETER: No suspicious masses. Assessment limited by lack of IV contrast. 2 mm ston e in the ureterovesical junction. Moderate hydronephrosis LEFT KIDNEY AND URETER: No suspicious masses. Assessment limited by lack of IV contrast. No signifi cant calcifications. No hydronephrosis or hydroureter. AORTA AND RETROPERITONEUM: No aneurysm. No retroperitoneal masses or adenopathy. BOWEL AND PERITONEAL CAVITY: No obvious masses or inflammatory changes. No free fluid. APPENDIX: Surgically absent. PELVIS, BLADDER, AND ABDOMINAL WALL:No abnormal masses. No free fluid. Bladder normal. BONES: Lumbosacral fusion. OTHER: No other significant finding. IMPRESSION: 2 mm stone right ureterovesical junction. Moderate hydronephrosis. COMMENT: Quality ID # [id number]: Final reports with documentation of one or more dose reduction techniques (e.g., Automated exposure control, adjustment of the mA and/or kV according to patient size, use of iterative reconstruction technique) TECHNICAL DOCUMENTATION: JOB ID: [id number] 2010 [employer]- All Rights Reserved Reading location - IP[facility]workstation name: [email or web address]
[2019-11-21] MEDS ORDERED: CEFTRIAXONE 1 GM/D5W RTU 1 GM/50 ML RTUPB IV ONE (14:05)
[2019-11-21 14:25] LABS: ABSOLUTE BASOPHILS # (AUTO) 0.1 10^3/uL (0.0-0.2); ABSOLUTE EOSINOPHILS # (AUTO) 0.1 10^3/uL (0.0-0.6); ABSOLUTE LYMPHOCYTES (AUTO) 1.2 10^3/uL (0.5-4.7); ABSOLUTE NEUT (AUTO) 11.5 10^3/uL (1.7-8.2); BASOPHILS % (AUTO) 0.5 % (0-2); EOSINOPHILS % (AUTO) 0.5 % (0-6); HEMOGLOBIN 12.9 g/dL (12.0-15.5); LYMPHOCYTES % (AUTO) 8.7 % (13-45); MEAN CORPUSCULAR HEMOGLOBIN 28.7 pg (27.0-33.4); MEAN CORPUSCULAR HGB CONC 33.9 g/dL (32.0-36.0); MEAN CORPUSCULAR VOLUME 85 fl (80-97); MONOCYTES % (AUTO) 7.4 % (3-13); PLATELET COUNT 315 10^3/uL (150-450); RED BLOOD COUNT 4.48 10^6/uL (3.72-5.28); RED CELL DISTRIBUTION WIDTH 15.7 % (11.5-14.0); SEGMENTED NEUTROPHILS % (AUTO) 82.9 % (42-78); TOTAL CELLS COUNTED % (AUTO) 100 %; WHITE BLOOD COUNT 13.9 10^3/uL (4.0-10.5)
[2019-11-21 14:41] LABS: ALBUMIN 4.3 g/dL (3.5-5.0); ALKALINE PHOSPHATASE 81 U/L (38-126); ANION GAP 7 (5-19); ASPARTATE AMINO TRANSFERASE 26 U/L (14-36); BILIRUBIN,TOTAL 0.4 mg/dL (0.2-1.3); BLOOD UREA NITROGEN 15 mg/dL (7-20); CALCIUM 9.2 mg/dL (8.4-10.2); CARBON DIOXIDE 24 mmol/L (22-30); CHLORIDE 105 mmol/L (98-107); GLUCOSE 88 mg/dL (75-110); POTASSIUM 4.2 mmol/L (3.6-5.0); TOTAL PROTEIN 7.4 g/dL (6.3-8.2)
[2019-11-21 17:19] LABS: APPEARANCE,URINE CLEAR; BILIRUBIN,URINE NEGATIVE (NEGATIVE); COLOR,URINE AMBER; GLUCOSE, URINE NEGATIVE (NEGATIVE); KETONES,URINE NEGATIVE (NEGATIVE); LEUKOCYTE ESTERASE,URINE NEGATIVE (NEGATIVE); NITRITE,URINE POSITIVE (NEGATIVE); PROTEIN,URINE NEGATIVE (NEGATIVE); URINE SPECIFIC GRAVITY 1.003
[2019-11-21 19:04] VITALS: BP 121/63
== END 2019-11-21 19:04 | disposition home or self-care (01) ==
LOC: ER 12:55
DX: N13.2 Hydronephrosis with renal and ureteral calculous obstruction (principal); R11.2 Nausea with vomiting, unspecified; D72.829 Elevated white blood cell count, unspecified; F17.200 Nicotine dependence, unspecified, uncomplicated; L40.50 Arthropathic psoriasis, unspecified; Z79.899 Other long term (current) drug therapy; Z88.0 Allergy status to penicillin
CPT/HCPCS: 99284; 96372; 96361; 96375; 96365; 36415; 85025; 80053; 81001; 74176; J1885; J2405; J7030; J0696

== ENCOUNTER 2020-03-31 14:00 | Observation (INO) | payer OTHER ==
[2020-03-31] MEDS ORDERED: ACETAMINOPHEN 325 MG TABLET PO ONE ×2 (14:26→20:00)
--- NOTE | 2020-03-31 14:37 | ER Document Report ---
ED Headache - General Chief Complaint: Headache Stated Complaint: HEADACHE/FEVER Time Seen by Provider: 03/31/20 14:06 Mode of Arrival: Ambulatory Information source: Patient Notes: 59-year-old female presented to ED for complaint of headache that is a shocking sensation that comes and goes and has been for years but this time is lasted longer than normal. She states she has some morphine left over from a kidney stone so she took 15 mg of morphine today. While I am talking to her the tech comes in and does the vital signs and her temperature is 102 and she says all yeah I had 103 fever at home. She did not have any other complaints. When I did do her 6-month she had a swollen nasal turbinate with purulent drainage. She states she has she has allergies. She had a red oral mucosa but no swollen tonsils and she said that is from her cold. She denies any cough or congestion. She denies any other symptoms. She states she has had these headaches for years but no one is ever evaluated him. I did start a septic protocol with her temperature 102.4 and a pulse of 96. Her blood pressure was 124/73 she did not look in any distress. She was given the 975 of Tylenol as well as 800 of ibuprofen for her headache. Did consult Dr. archuleta who is on-call he stated to give her azithromycin 500 by mouth and a gram of Rocephin IV. This has been started. TRAVEL OUTSIDE OF THE [place] IN LAST 30 DAYS: No - HPI Patient complains to provider of: Headache Patient reports: Hx chronic headaches Onset: Just prior to arrival Timing: Better Quality of pain: Achy, Throbbing, Other - Shocking Severity: Moderate Pain Level: 3 - States that times is 5+ Associated symptoms: Other - States she has had a runny nose and postnasal drip from her allergies Similar symptoms previously: Yes Recently seen / treated by doctor: No - Related Data Allergies/Adverse Reactions: Penicillins Allergy (Verified 11/21/19 14:03) Past Medical History - General Information source: Patient - Social History Smoking Status: Current Every Day Smoker Cigarette use (# per day): Yes - 1/2 pack/day Smoking Education Provided: Yes - 3 minutes Frequency of alcohol use: Occasional Drug Abuse: None Lives with: Family Family History: Reviewed & Not Pertinent Patient has suicidal ideation: No Patient has homicidal ideation: No - Past Medical History Cardiac Medical History: Reports: None Pulmonary Medical History: Reports: None EENT Medical History: Reports: None Neurological Medical History: Reports: Hx Migraine Endocrine Medical History: Reports: None Renal/ Medical History: Reports: Hx Kidney Stones Malignancy Medical History: Reports: None GI Medical History: Reports: None Musculoskeletal Medical History: Reports Hx Arthritis - psoriacic arthritis Skin Medical History: Reports None Psychiatric Medical History: Reports: None Traumatic Medical History: Reports: None Infectious Medical History: Reports: None Past Surgical History: Reports: Hx Appendectomy, Hx Breast Surgery - breast augmentation, Hx Section, Hx Hysterectomy, Hx Orthopedic Surgery - laminectomy, spinal fusion, Hx Tonsillectomy - Immunizations Immunizations up to date: Yes Review of Systems - Review of Systems Constitutional: Fever, Recent illness EENT: Nose discharge, Sinus discharge, Throat pain Cardiovascular: No symptoms reported Respiratory: No symptoms reported Gastrointestinal: No symptoms reported Genitourinary: No symptoms reported Female Genitourinary: No symptoms reported Musculoskeletal: No symptoms reported Skin: No symptoms reported Hematologic/Lymphatic: No symptoms reported Neurological/Psychological: Headaches -: Yes All other systems reviewed and negative Physical Exam - Vital signs Vitals: Temp 102.6 F H 03/31/20 14:05 Interpretation: Febrile - General General appearance: Appears well, Alert - HEENT Head: Normocephalic, Atraumatic Eyes: Normal Pupils: PERRL Ears: Normal External canal: Normal Tympanic membrane: Normal Sinus: Normal Nasal: Purulent discharge, Swelling Mucous membranes: Normal Pharynx: Post nasal drainage Neck: Normal - Respiratory Respiratory status: No respiratory distress Chest status: Nontender Breath sounds: Normal Chest palpation: Normal - Cardiovascular Rhythm: Regular Heart sounds: Normal auscultation Murmur: No - Abdominal Inspection: Normal Distension: No distension Bowel sounds: Normal Tenderness: Nontender Organomegaly: No organomegaly - Back Back: Normal, Nontender - Extremities General upper extremity: Normal inspection, Nontender, Normal color, Normal ROM, Normal temperature General lower extremity: Normal inspection, Nontender, Normal color, Normal ROM, Normal temperature, Normal weight bearing. No: Sammy's sign - Neurological Neuro grossly intact: Yes Cognition: Normal Orientation: AAOx4 Jane Coma Scale Eye Opening: Spontaneous Jane Coma Scale Verbal: Oriented Jane Coma Scale Motor: Obeys Commands [place] Coma Scale Total: 15 Speech: Normal Motor strength normal: LUE, RUE, LLE, RLE Sensory: Normal - Psychological Associated symptoms: Normal affect, Normal mood - Skin Skin Temperature: Warm Skin Moisture: Dry Skin Color: Normal Course - Re-evaluation Re-evalutation: 03/31/20 18:20 Chest x-ray negative flu and strep negative patient did have hematuria post hysterectomy. She does have a history of kidney stones will get CT abdomen pelvis noncontrasted and repeat urine. First urine was concentrated as dehydration but patient has been treated with 2 L of fluids per sepsis protocol. She has been afebrile and her lactic acids have been negative. Patient was treated first assessment with azithromycin and Rocephin for her elevated temp per Dr. archuleta's recommendations. I did discuss the chest x-ray flu and strep test with him. He recommended go ahead and getting the CT noncontrasted. CT noncontrasted did return negative. I was discussed and discharged with her when I we did her vital signs she had a temperature of 100.7 and was feeling very cold. I did order more Tylenol and more fluids to help with her fever. I spoke with Dr. Maki concerning her lab values, chest x-ray, CT results and vital signs. He stated the patient would need to be admitted. I did consult Dr. Casey. He stated he would come and examine the patient after he reviewed the chart and determine whether he would admit the patient. - Vital Signs Vital signs: Temp Pulse Resp BP Pulse Ox 100.7 F H 96 22 H 124/73 96 03/31/20 19:59 03/31/20 14:15 03/31/20 17:00 03/31/20 14:15 03/31/20 17:00 - Laboratory Result Diagrams: 03/31/20 14:37 03/31/20 14:37 Laboratory results interpreted by me: 03/31/20 03/31/20 03/31/20 14:17 14:36 14:37 WBC 14.6 H RDW 15.4 H Lymph % (Auto) 8.6 L Absolute Neuts (auto) 12.6 H Seg Neutrophils % 86.2 H Sodium Chloride Glucose POC Glucose 118 H Lactic Acid AST ALT Urine Protein 100 H Urine Ketones 20 H Urine Blood LARGE H Urine Urobilinogen 4.0 H Ur Leukocyte Esterase TRACE H 03/31/20 03/31/20 03/31/20 14:37 17:18 18:38 WBC RDW Lymph % (Auto) Absolute Neuts (auto) Seg Neutrophils % Sodium 129.7 L Chloride 95 L Glucose 111 H POC Glucose Lactic Acid 0.6 L AST 144 H ALT 94 H Urine Protein Urine Ketones TRACE H Urine Blood MODERATE H Urine Urobilinogen Ur Leukocyte Esterase - Diagnostic Test Radiology reviewed: Image reviewed, Reports reviewed Discharge - Discharge Clinical Impression: Person under investigation for COVID-19, SIRS (systemic inflammatory response syndrome) Hematuria Qualifiers: Hematuria type: unspecified type Qualified Code(s): R31.9 - Hematuria, unspecified Fever Qualifiers: Fever type: unspecified Qualified Code(s): R50.9 - Fever, unspecified Disposition: ADMITTED OBSERVATION Admitting Provider: Jacinto (Hospitalist)
[2020-03-31] MEDS ORDERED: AZITHROMYCIN 250 MG TABLET PO ONE (14:50)
[2020-03-31] MEDS ORDERED: CEFTRIAXONE 1 GM/D5W RTU 1 GM/50 ML RTUPB IV ONE (14:50)
[2020-03-31] MEDS: NORMAL SALINE 1000 ML 1,000 ML IV PRN ×2 (14:55→16:10)
[2020-03-31 15:10] LABS: ABSOLUTE LYMPHOCYTES (AUTO) 1.3 10^3/uL (0.5-4.7); ABSOLUTE MONOCYTES (AUTO) 0.7 10^3/uL (0.1-1.4); ABSOLUTE NEUT (AUTO) 12.6 10^3/uL (1.7-8.2); BASOPHILS % (AUTO) 0.2 % (0-2); EOSINOPHILS % (AUTO) 0.1 % (0-6); HEMATOCRIT 40.8 % (36.0-47.0); HEMOGLOBIN 13.6 g/dL (12.0-15.5); LYMPHOCYTES % (AUTO) 8.6 % (13-45); MEAN CORPUSCULAR HEMOGLOBIN 28.3 pg (27.0-33.4); MEAN CORPUSCULAR HGB CONC 33.3 g/dL (32.0-36.0); MEAN CORPUSCULAR VOLUME 85 fl (80-97); MONOCYTES % (AUTO) 4.9 % (3-13); PLATELET COUNT 292 10^3/uL (150-450); RED CELL DISTRIBUTION WIDTH 15.4 % (11.5-14.0); SEGMENTED NEUTROPHILS % (AUTO) 86.2 % (42-78); TOTAL CELLS COUNTED % (AUTO) 100 %; WHITE BLOOD COUNT 14.6 10^3/uL (4.0-10.5)
--- NOTE | 2020-03-31 15:12 | RADIOLOGY REPORT (SQ) ---
EXAM DESCRIPTION: CT HEAD WITHOUT IMAGES COMPLETED DATE/TIME: 03/31/2020 3:03 pm REASON FOR STUDY: headache fever COMPARISON: None. TECHNIQUE: Axial images acquired through the brain without intravenous contrast. Images reviewed wi th bone, brain and subdural windows. Additional sagittal and coronal reconstructions were generated. Images stored on PACS. All CT scanners at this facility use dose modulation, iterative reconstruction, and/or weight based d osing when appropriate to reduce radiation dose to as low as reasonably achievable (ALARA). [facility]: Dose Right [facility]: CareDose [facility]: Dose Right [facility]: Teradose 4D [facility]: Common Sensing RADIATION DOSE: CT Rad equipment meets quality standard of care and radiation dose reduction techniq ues were employed. CTDIvol: 53.2 mGy. DLP: 991 mGy-cm. mGy. LIMITATIONS: None. FINDINGS: VENTRICLES: Normal size and contour. CEREBRUM: No masses. No hemorrhage. No midline shift. No evidence for acute infarction. Normal gra y/white matter differentiation. No areas of low density in the white matter. CEREBELLUM: No masses. No hemorrhage. No alteration of density. No evidence for acute infarction. EXTRAAXIAL SPACES: No fluid collections. No masses. ORBITS AND GLOBE: No intra- or extraconal masses. Normal contour of globe without masses. CALVARIUM: No fracture. PARANASAL SINUSES: No fluid or mucosal thickening. SOFT TISSUES: No mass or hematoma. OTHER: No other significant finding. IMPRESSION: NORMAL BRAIN CT WITHOUT CONTRAST. EVIDENCE OF ACUTE STROKE: NO. COMMENT: Quality ID # [id number]: Final reports with documentation of one or more dose reduction techniques (e.g., Automated exposure control, adjustment of the mA and/or kV according to patient size, use of iterative reconstruction technique) TECHNICAL DOCUMENTATION: JOB ID: [id number] 2010 [employer]- All Rights Reserved Reading location - IP/workstation name: [email or web address]
--- NOTE | 2020-03-31 15:12 | RADIOLOGY REPORT (SQ) ---
EXAM DESCRIPTION: CHEST SINGLE VIEW IMAGES COMPLETED DATE/TIME: 03/31/2020 3:04 pm REASON FOR STUDY: sepsis COMPARISON: 06/27/2018 EXAM PARAMETERS: NUMBER OF VIEWS: One view. TECHNIQUE: Single frontal radiographic view of the chest acquired. RADIATION DOSE: NA LIMITATIONS: None. FINDINGS: LUNGS AND PLEURA: No opacities, masses or pneumothorax. No pleural effusion. MEDIASTINUM AND HILAR STRUCTURES: No masses. Contour normal. HEART AND VASCULAR STRUCTURES: Heart normal in size. Normal vasculature. BONES: No acute findings. HARDWARE: None in the chest. OTHER: No other significant finding. IMPRESSION: NO ACUTE RADIOGRAPHIC FINDING IN THE CHEST. TECHNICAL DOCUMENTATION: JOB ID: [id number] 2010 [employer]- All Rights Reserved Reading location - IP/workstation name: [email or web address]
[2020-03-31 15:13] LABS: VENOUS BLOOD BASE EXCESS -1.8 mmol/L; VENOUS BLOOD HCO3 24.3 mmol/L (20-32); VENOUS BLOOD PCO2 46.3 mmHg (35-63); VENOUS BLOOD PH 7.34 (7.30-7.42)
[2020-03-31 15:14] LABS: INTERNATIONAL RATION (INR) 1.06
[2020-03-31 15:34] LABS: ALBUMIN 4.5 g/dL (3.5-5.0); ALKALINE PHOSPHATASE 110 U/L (38-126); ANION GAP 9 (5-19); ASPARTATE AMINO TRANSFERASE 144 U/L (14-36); BILIRUBIN,DIRECT 0.3 mg/dL (0.0-0.4); BILIRUBIN,TOTAL 0.6 mg/dL (0.2-1.3); BLOOD UREA NITROGEN 19 mg/dL (7-20); CALCIUM 9.3 mg/dL (8.4-10.2); CARBON DIOXIDE 26 mmol/L (22-30); CHLORIDE 95 mmol/L (98-107); GLUCOSE 111 mg/dL (75-110); POTASSIUM 4.1 mmol/L (3.6-5.0); TOTAL PROTEIN 7.8 g/dL (6.3-8.2)
[2020-03-31 16:49] LABS: A TYPE INFLUENZA AG NEGATIVE (NEGATIVE); B INFLUENZA AG NEGATIVE (NEGATIVE)
[2020-03-31 18:08] LABS: APPEARANCE,URINE TURBID; BILIRUBIN,URINE NEGATIVE (NEGATIVE); CALCIUM OXALATE CRYSTALS,URINE MANY /HPF; COLOR,URINE AMBER; GLUCOSE, URINE NEGATIVE (NEGATIVE); KETONES,URINE 20 mg/dL (NEGATIVE); LEUKOCYTE ESTERASE,URINE TRACE (NEGATIVE); NITRITE,URINE NEGATIVE (NEGATIVE); PROTEIN,URINE 100 mg/dL (NEGATIVE); URINE SPECIFIC GRAVITY 1.028
--- NOTE | 2020-03-31 18:52 | RADIOLOGY REPORT (SQ) ---
EXAM DESCRIPTION: CT ABD/PELVIS NO ORAL OR IV IMAGES COMPLETED DATE/TIME: 03/31/2020 6:33 pm REASON FOR STUDY: hematuria COMPARISON: 11/21/2019. TECHNIQUE: CT scan of the abdomen and pelvis performed without intravenous or oral contrast. Images reviewed with lung, soft tissue, and bone windows. Reconstructed coronal and sagittal MPR images revi ewed. All images stored on PACS. All CT scanners at this facility use dose modulation, iterative reconstruction, and/or weight based d osing when appropriate to reduce radiation dose to as low as reasonably achievable (ALARA). [facility]: Dose Right [facility]: CareDose [facility]: Dose Right [facility]: Teradose 4D [facility]: Smart KangaDo RADIATION DOSE: CT Rad equipment meets quality standard of care and radiation dose reduction techniq ues were employed. CTDIvol: 8.5 mGy. DLP: 420 mGy-cm.mGy. LIMITATIONS: None. FINDINGS: LOWER CHEST: No significant findings. No nodules or infiltrates. NON-CONTRASTED LIVER, SPLEEN, ADRENALS: Evaluation limited by lack of IV contrast. No identified sign ificant masses. PANCREAS: No masses. No peripancreatic inflammatory changes. GALLBLADDER: Surgically absent. RIGHT KIDNEY AND URETER: No suspicious masses. Assessment limited by lack of IV contrast. No signif icant calcifications. No hydronephrosis or hydroureter. LEFT KIDNEY AND URETER: No suspicious masses. Assessment limited by lack of IV contrast. No signifi cant calcifications. No hydronephrosis or hydroureter. AORTA AND RETROPERITONEUM: No aneurysm. No retroperitoneal masses or adenopathy. BOWEL AND PERITONEAL CAVITY: No obvious masses or inflammatory changes. No free fluid. APPENDIX: Not visualized. PELVIS, BLADDER, AND ABDOMINAL WALL:No abnormal masses. No free fluid. Bladder normal. BONES: No significant findings. Surgical changes and hardware in the lumbar spine. OTHER: No other significant finding. IMPRESSION: NO SIGNIFICANT OR ACUTE PROCESS IN THE ABDOMEN OR PELVIS. COMMENT: Quality ID # [id number]: Final reports with documentation of one or more dose reduction techniques (e.g., Automated exposure control, adjustment of the mA and/or kV according to patient size, use of iterative reconstruction technique) TECHNICAL DOCUMENTATION: JOB ID: [id number] 2010 [employer]- All Rights Reserved Reading location - IP/workstation name: [email or web address]
[2020-03-31 18:56] LABS: APPEARANCE,URINE SLIGHTLY-CLOUDY; BILIRUBIN,URINE NEGATIVE (NEGATIVE); COLOR,URINE YELLOW; GLUCOSE, URINE NEGATIVE (NEGATIVE); KETONES,URINE TRACE mg/dL (NEGATIVE); LEUKOCYTE ESTERASE,URINE NEGATIVE (NEGATIVE); NITRITE,URINE NEGATIVE (NEGATIVE); PROTEIN,URINE NEGATIVE (NEGATIVE); URINE SPECIFIC GRAVITY 1.014; UROBILINOGEN,URINE NEGATIVE mg/dL (<2.0)
[2020-03-31] MEDS ORDERED: NORMAL SALINE 1000 ML 1,000 ML IV ONE ×2 (20:00→20:05)
[2020-03-31] MEDS ORDERED: ONDANSETRON HCL INJ/PF 4 MG/2 ML SDV IV PRN (22:23)
[2020-03-31] MEDS ORDERED: ACETAMINOPHEN 325 MG TABLET PO PRN (22:23)
[2020-03-31] MEDS ORDERED: GLUCAGON,HUMAN RECOMB 1 MG INJ IM PRN (22:29)
[2020-03-31] MEDS ORDERED: DEXTROSE 40% GEL 15 GM TUBE PO PRN ×2 (22:29)
[2020-03-31] MEDS ORDERED: DEXTROSE 50%-WATER 25 GM/50 ML DISP.SYRIN IV PRN ×2 (22:29)
--- NOTE | 2020-03-31 22:47 | PDOC H&P ---
History of Present Illness Admission Date/PCP: 03/31/20 22:25 History of Present Illness: OMERO MONAHAN is a 59 year old female with a history of psoriatic arthritis, insulin resistance (but she denies having diabetes), and a current every day smoker, who presents with headache since yesterday. She describes it as very sharp and towards the back of her head. She said she felt bad today and had body aches and so she took her temperature and apparently had a fever of 103 Fahrenheit at home. She has not had any cough. She has not had any shortness of breath or dyspnea. She has not had any abdominal pain, nausea, or vomiting, but said she is not really had much of an appetite today. No dysuria. No flank pain. No chest pain. No breaks in the skin. She had history of a spinal fusion done in 2007 but she said her back pain has not been any worse than usual. No photophobia. She had a leukocytosis in the ER but the rest of her labs were normal. Chest x-ray was negative. Abdominal CT was negative. Head CT was negative. She lives at home with her significant other and that is the only person that she has been around lately and he has not been sick. Past Medical History Cardiac Medical History: Reports: None Pulmonary Medical History: Reports: None EENT Medical History: Reports: None Neurological Medical History: Reports: Migraine Endocrine Medical History: Reports: None Malignancy Medical History: Reports: None GI Medical History: Reports: None Musculoskeltal Medical History: Reports: Arthritis - psoriacic arthritis Skin Medical History: Reports: None Psychiatric Medical History: Reports: None Denies: Depression Traumatic Medical History: Reports: None Infectious Medical History: Reports: None Past Surgical History Past Surgical History: Reports: Appendectomy, Section, Hysterectomy, Orthopedic Surgery - laminectomy, spinal fusion, Tonsillectomy Social History Lives with: Family Smoking Status: Current Every Day Smoker Electronic Cigarette use?: No Frequency of Alcohol Use: Occasional Hx Recreational Drug Use: No Drugs: None Hx Prescription Drug Abuse: No Family History Family History: Reviewed & Not Pertinent Parental Family History Reviewed: Yes Children Family History Reviewed: Yes Sibling(s) Family History Reviewed.: Yes Medication/Allergy Home Medications: Cetirizine HCl [Zyrtec 10 mg Tablet] 10 mg PO DAILY 06/27/18 Duloxetine HCl [Cymbalta] 30 mg PO QHS 06/27/18 Estradiol [Estrace] 1 mg PO DAILY 06/27/18 Folic Acid 1 mg PO DAILY 06/27/18 Meloxicam 15 mg PO DAILY 06/27/18 Cephalexin Monohydrate [Keflex 500 mg Capsule] 500 mg PO TID #21 capsule 11/21/19 Levothyroxine Sodium [Levoxyl] 100 mcg PO Q6AM 11/21/19 Liraglutide [Saxenda] mg SUBCUT .QWEEKLY 11/21/19 Morphine Sulfate [Morphine Ir 15 Mg Tablet] 15 mg PO TID #12 tablet 11/21/19 Ondansetron [Zofran Odt 4 mg Tablet] 1 - 2 tab PO Q4H PRN #15 tab.rapdis Prednisone [Deltasone 5 mg Tablet] 5 mg PO DAILY 11/21/19 Tamsulosin HCl [Flomax] 0.4 mg PO DAILY #10 cap.er.24h 11/21/19 Tofacitinib Citrate [Xeljanz] 5 mg PO Q12 11/21/19 Allergies/Adverse Reactions: Penicillins Allergy (Verified 11/21/19 14:03) Review of Systems All systems: reviewed and no additional remarkable complaints except as stated - All systems were reviewed and were negative except as noted in the HPI Physical Exam Vital Signs: Temp Pulse Resp BP Pulse Ox 100.7 F H 96 22 H 124/73 96 03/31/20 19:59 03/31/20 14:15 03/31/20 17:00 03/31/20 14:15 03/31/20 17:00 Intake & Output 03/30/20 03/31/20 04/01/20 06:59 06:59 06:59 Intake Total 2049 Balance 2049 Weight 72.121 kg General appearance: PRESENT: no acute distress, cooperative, disheveled Head exam: PRESENT: atraumatic, normocephalic Eye exam: PRESENT: EOMI, PERRLA. ABSENT: conjunctival injection, nystagmus, scleral icterus Ear exam: PRESENT: normal external ear exam Mouth exam: PRESENT: dry mucosa, neck supple Throat exam: ABSENT: post pharyngeal erythema Neck exam: PRESENT: full ROM. ABSENT: carotid bruit, JVD, lymphadenopathy, meningismus, tenderness, thyromegaly Respiratory exam: PRESENT: clear to auscultation keyona, symmetrical, unlabored. ABSENT: accessory muscle use, chest wall tenderness, crackles, prolonged expirat ory phas, rhonchi, tachypnea, wheezes Cardiovascular exam: PRESENT: RRR, +S1, +S2 Pulses: PRESENT: normal carotid pulses Vascular exam: PRESENT: normal capillary refill GI/Abdominal exam: PRESENT: normal bowel sounds, soft. ABSENT: distended, guarding, rebound, tenderness Extremities exam: ABSENT: clubbing, pedal edema Musculoskeletal exam: PRESENT: normal inspection. ABSENT: deformity Neurological exam: PRESENT: alert, awake, oriented to person, oriented to place, oriented to time, oriented to situation, CN II-XII grossly intact. ABSENT: motor sensory deficit Psychiatric exam: PRESENT: appropriate affect, normal mood Skin exam: PRESENT: dry, warm Results Laboratory Results: 03/31/20 14:37 03/31/20 14:37 03/31/20 03/31/20 03/31/20 14:17 14:37 14:37 WBC 14.6 H RBC 4.80 Hgb 13.6 Hct 40.8 MCV 85 MCH 28.3 MCHC 33.3 RDW 15.4 H Plt Count 292 Seg Neutrophils % 86.2 H VBG pH VBG pCO2 VBG HCO3 VBG Base Excess Sodium 129.7 L Potassium 4.1 Chloride 95 L Carbon Dioxide 26 Anion Gap 9 BUN 19 Creatinine 0.92 Est GFR ( Amer) > 60 Glucose 111 H Lactic Acid Calcium 9.3 Total Bilirubin 0.6 AST 144 H Alkaline Phosphatase 110 Total Protein 7.8 Albumin 4.5 Urine Color JOHN Urine Appearance TURBID Urine pH 5.0 Ur Specific [place] 1.028 Urine Protein 100 H Urine Glucose (UA) NEGATIVE Urine Ketones 20 H Urine Blood LARGE H Urine Nitrite NEGATIVE Ur Leukocyte Esterase TRACE H Urine WBC (Auto) 5 Urine RBC (Auto) 112 03/31/20 03/31/20 03/31/20 14:37 14:37 17:18 WBC RBC Hgb Hct MCV MCH MCHC RDW Plt Count Seg Neutrophils % VBG pH 7.34 VBG pCO2 46.3 VBG HCO3 24.3 VBG Base Excess -1.8 Sodium Potassium Chloride Carbon Dioxide Anion Gap BUN Creatinine Est GFR ( Amer) Glucose Lactic Acid 1.2 0.6 L Calcium Total Bilirubin AST Alkaline Phosphatase Total Protein Albumin Urine Color Urine Appearance Urine pH Ur Specific [place] Urine Protein Urine Glucose (UA) Urine Ketones Urine Blood Urine Nitrite Ur Leukocyte Esterase Urine WBC (Auto) Urine RBC (Auto) 03/31/20 18:38 WBC RBC Hgb Hct MCV MCH MCHC RDW Plt Count Seg Neutrophils % VBG pH VBG pCO2 VBG HCO3 VBG Base Excess Sodium Potassium Chloride Carbon Dioxide Anion Gap BUN Creatinine Est GFR ( Amer) Glucose Lactic Acid Calcium Total Bilirubin AST Alkaline Phosphatase Total Protein Albumin Urine Color YELLOW Urine Appearance SLIGHTLY-CLOUDY Urine pH 5.0 Ur Specific [place] 1.014 Urine Protein NEGATIVE Urine Glucose (UA) NEGATIVE Urine Ketones TRACE H Urine Blood MODERATE H Urine Nitrite NEGATIVE Ur Leukocyte Esterase NEGATIVE Urine WBC (Auto) 3 Urine RBC (Auto) 11 Impressions: Chest X-Ray 03/31/20 14:20 IMPRESSION: NO ACUTE RADIOGRAPHIC FINDING IN THE CHEST. Head CT 03/31/20 14:37 IMPRESSION: NORMAL BRAIN CT WITHOUT CONTRAST. EVIDENCE OF ACUTE STROKE: NO. Abdomen/Pelvis CT 03/31/20 18:19 IMPRESSION: NO SIGNIFICANT OR ACUTE PROCESS IN THE ABDOMEN OR PELVIS. Assessment and Plan - Diagnosis (1) SIRS (systemic inflammatory response syndrome) Is this a current diagnosis for this admission?: Yes Plan: There is no definite source of infection here. She was given some antibiotics in the ER but I am going to hold off on antibiotics because we do not know what were treating with them. She was swabbed negative for the flu in the ER and for group A strep. Coronavirus testing is pending. Based on her presentation, according to CDC guidelines she would be classified as having mild disease if this was COVID. I did not check d-dimer, ferritin, etc., because this would be considered mild disease. Her chest x-ray is clear and she is not hypoxic, h aving an SPO2 of 98 to 100% on room air and breathing very comfortably. The primary reason for keeping her for observation is because she does have risk factors for severe disease if this turns out to be coronavirus: Immunosuppression, insulin resistance/diabetes, and smoking. (2) Psoriatic arthritis Is this a current diagnosis for this admission?: Yes Plan: Continue Xeljanz for now. (3) Smoker Is this a current diagnosis for this admission?: Yes Plan: If strongly encourage cessation - Time Time Spent with patient: 35 or more minutes Anticipated Discharge Disposition: Home, Self Care Anticipated Discharge Timeframe: within 24 hours
--- NOTE | 2020-03-31 23:13 | EKG REPORT ---
SEVERITY:- NORMAL ECG - SINUS RHYTHM : Confirmed by: Lidia Hanson MD 31-Mar-2020 23:13:03
[2020-04-01] MEDS: NORMAL SALINE 1000 ML 1,000 ML IV PRN ×2 (00:30→23:00)
[2020-04-01] MEDS: IBUPROFEN 800 MG TABLET PO PRN ×3 (00:45→21:56)
[2020-04-01 06:43] LABS: MEAN CORPUSCULAR HEMOGLOBIN 28.5 pg (27.0-33.4); MEAN CORPUSCULAR HGB CONC 33.7 g/dL (32.0-36.0); MEAN CORPUSCULAR VOLUME 85 fl (80-97); RED BLOOD COUNT 4.02 10^6/uL (3.72-5.28); RED CELL DISTRIBUTION WIDTH 15.6 % (11.5-14.0); WHITE BLOOD COUNT 13.1 10^3/uL (4.0-10.5)
[2020-04-01 06:58] LABS: ANION GAP 5 (5-19); BLOOD UREA NITROGEN 17 mg/dL (7-20); CARBON DIOXIDE 22 mmol/L (22-30); CHLORIDE 108 mmol/L (98-107); GLUCOSE 97 mg/dL (75-110)
[2020-04-01 06:59] LABS: POTASSIUM 3.9 mmol/L (3.6-5.0)
[2020-04-01 07:13] LABS: HEMOGLOBIN 11.4 g/dL (12.0-15.5)
[2020-04-01 07:14] LABS: PLATELET COUNT 217 10^3/uL (150-450)
[2020-04-01] MEDS: INSULIN REG, HUMAN 100 UNIT/ML 3 ML VIAL (PYX) SUBCUT SCH ×4 (08:47→21:57)
[2020-04-01] MEDS ORDERED: LIDOCAINE 1% INJ-PF (10 MG/ML) 30 ML SDV ONE (11:45)
[2020-04-01] MEDS ORDERED: LIDOCAINE 2% INJ-PF (100 MG/5 ML) SYRINGE ONE (11:45)
[2020-04-01] MEDS ORDERED: HYDROMORPHONE HCL INJ/PF 2 MG/ML AMPULE IV ONE (12:30)
[2020-04-01] MEDS ORDERED: LORAZEPAM INJ 2 MG/1 ML VIAL IV ONE (12:30)
[2020-04-01 14:15] LABS: APPEARANCE ALL TUBES CLEAR; COLOR ALL TUBES COLORLESS; CSF TUBE NUMBER 3; RED BLOOD CELL,CSF 1 /uL (0-10); VOLUME TUBE 2 2.5 CC; VOLUME TUBE 4 2.5 CC
[2020-04-01 14:16] LABS: WHITE BLOOD CELL,CSF 1 /uL (0-5)
[2020-04-01 14:22] LABS: GLUCOSE,CSF 74 mg/dL (40-70); PROTEIN,CSF 32 mg/dL (12-60)
--- NOTE | 2020-04-01 14:51 | Operative Report ---
Bedside Procedure - History of Present Illness Indication for Procedure: Headache, fever, dizziness Date: 04/01/20 Provider: VIKTOR BERTRAND - Lumbar Puncture Lumbar puncture Time completed: 12:45 Consent obtained: Yes Lumbar puncture pre-procedure: Sterile PPE donned, Betadine prep applied, Chloraprep applied, Sterile drapes applied Patient position: Lying Anesthetic type: 2% Lidocaine mL's of anesthetic: 7 - 5-10cc Amount/type of drainage: 10cc/Clear csf Number of attempts: 2 Complications: No - Nothing significant just minimal bleeding Notes: 04/01/20 14:50 Patient instructed to stay flat in bed for the next 4 hours.
--- NOTE | 2020-04-01 15:04 | PDOC PROGRESS REPORT ---
Subjective Progress Note for:: 04/01/20 Subjective:: Today, patient's endorses persistence of headache, fever and some dizziness this morning. She also admits to some neck pain but states that she has chronic neck issues every now and then from cervical disc problems. She also states her headache is a shocking sensation. Seems similar to priors but a lot more intense and lasting longer than the prior episodes. Endorses body aches. However the rest of her review of systems is essentially negative making it diff icult to localize an infectious source for fever. Reason For Visit: SIRS Physical Exam Vital Signs: Temp Pulse Resp BP Pulse Ox 98.2 F 90 21 H 111/62 96 04/01/20 11:44 04/01/20 12:06 04/01/20 11:44 04/01/20 12:06 04/01/20 12:06 Intake & Output 03/31/20 04/01/20 04/02/20 06:59 06:59 06:59 Intake Total 3050 Balance 3050 Weight 78.1 kg General appearance: PRESENT: no acute distress, cooperative Eye exam: PRESENT: EOMI Neck exam: PRESENT: tenderness - Mild. ABSENT: JVD, meningismus Respiratory exam: PRESENT: clear to auscultation keyona, symmetrical, unlabored. ABSENT: tachypnea, wheezes Cardiovascular exam: PRESENT: RRR, +S1, +S2. ABSENT: tachycardia GI/Abdominal exam: PRESENT: soft. ABSENT: rebound, rigid, tenderness Neurological exam: PRESENT: alert, awake, oriented to person, oriented to place, oriented to time, oriented to situation. ABSENT: motor sensory deficit Results Laboratory Results: 04/01/20 05:14 04/01/20 05:14 03/31/20 03/31/20 03/31/20 14:17 14:37 14:37 WBC 14.6 H RBC 4.80 Hgb 13.6 Hct 40.8 MCV 85 MCH 28.3 MCHC 33.3 RDW 15.4 H Plt Count 292 Seg Neutrophils % 86.2 H VBG pH VBG pCO2 VBG HCO3 VBG Base Excess Sodium 129.7 L Potassium 4.1 Chloride 95 L Carbon Dioxide 26 Anion Gap 9 BUN 19 Creatinine 0.92 Est GFR ( Amer) > 60 Glucose 111 H Lactic Acid Calcium 9.3 Total Bilirubin 0.6 AST 144 H Alkaline Phosphatase 110 Total Protein 7.8 Albumin 4.5 Urine Color JOHN Urine Appearance TURBID Urine pH 5.0 Ur Specific [place] 1.028 Urine Protein 100 H Urine Glucose (UA) NEGATIVE Urine Ketones 20 H Urine Blood LARGE H Urine Nitrite NEGATIVE Ur Leukocyte Esterase TRACE H Urine WBC (Auto) 5 Urine RBC (Auto) 112 Fluid Tube Number CSF Volume CSF Appearance CSF Color CSF WBC CSF RBC CSF Glucose CSF Total Protein 03/31/20 03/31/20 03/31/20 14:37 14:37 17:18 WBC RBC Hgb Hct MCV MCH MCHC RDW Plt Count Seg Neutrophils % VBG pH 7.34 VBG pCO2 46.3 VBG HCO3 24.3 VBG Base Excess -1.8 Sodium Potassium Chloride Carbon Dioxide Anion Gap BUN Creatinine Est GFR ( Amer) Glucose Lactic Acid 1.2 0.6 L Calcium Total Bilirubin AST Alkaline Phosphatase Total Protein Albumin Urine Color Urine Appearance Urine pH Ur Specific [place] Urine Protein Urine Glucose (UA) Urine Ketones Urine Blood Urine Nitrite Ur Leukocyte Esterase Urine WBC (Auto) Urine RBC (Auto) Fluid Tube Number CSF Volume CSF Appearance CSF Color CSF WBC CSF RBC CSF Glucose CSF Total Protein 03/31/20 04/01/20 04/01/20 18:38 05:14 05:14 WBC 13.1 H RBC 4.02 Hgb 11.4 L D Hct 34.0 L MCV 85 MCH 28.5 MCHC 33.7 RDW 15.6 H Plt Count 217 Seg Neutrophils % VBG pH VBG pCO2 VBG HCO3 VBG Base Excess Sodium 134.9 L Potassium 3.9 Chloride 108 H Carbon Dioxide 22 Anion Gap 5 BUN 17 Creatinine 0.75 Est GFR ( Amer) > 60 Glucose 97 Lactic Acid Calcium 8.0 L Total Bilirubin AST Alkaline Phosphatase Total Protein Albumin Urine Color YELLOW Urine Appearance SLIGHTLY-CLOUDY Urine pH 5.0 Ur Specific [place] 1.014 Urine Protein NEGATIVE Urine Glucose (UA) NEGATIVE Urine Ketones TRACE H Urine Blood MODERATE H Urine Nitrite NEGATIVE Ur Leukocyte Esterase NEGATIVE Urine WBC (Auto) 3 Urine RBC (Auto) 11 Fluid Tube Number CSF Volume CSF Appearance CSF Color CSF WBC CSF RBC CSF Glucose CSF Total Protein 04/01/20 04/01/20 13:00 13:00 WBC RBC Hgb Hct MCV MCH MCHC RDW Plt Count Seg Neutrophils % VBG pH VBG pCO2 VBG HCO3 VBG Base Excess Sodium Potassium Chloride Carbon Dioxide Anion Gap BUN Creatinine Est GFR ( Amer) Glucose Lactic Acid Calcium Total Bilirubin AST Alkaline Phosphatase Total Protein Albumin Urine Color Urine Appearance Urine pH Ur Specific [place] Urine Protein Urine Glucose (UA) Urine Ketones Urine Blood Urine Nitrite Ur Leukocyte Esterase Urine WBC (Auto) Urine RBC (Auto) Fluid Tube Number 3 CSF Volume 9.0 CSF Appearance CLEAR CSF Color COLORLESS CSF WBC 1 CSF RBC 1 CSF Glucose 74 H CSF Total Protein 32 Impressions: Chest X-Ray 03/31/20 14:20 IMPRESSION: NO ACUTE RADIOGRAPHIC FINDING IN THE CHEST. Head CT 03/31/20 14:37 IMPRESSION: NORMAL BRAIN CT WITHOUT CONTRAST. EVIDENCE OF ACUTE STROKE: NO. Abdomen/Pelvis CT 03/31/20 18:19 IMPRESSION: NO SIGNIFICANT OR ACUTE PROCESS IN THE ABDOMEN OR PELVIS. Assessment and Plan - Diagnosis (1) Fever Qualifiers: Fever type: unspecified Qualified Code(s): R50.9 - Fever, unspecified Is this a current diagnosis for this admission?: Yes (2) SIRS (systemic inflammatory response syndrome) Is this a current diagnosis for this admission?: Yes Plan: There is no definite source of infection here. She was given some antibiotics in the ER but I am going to hold off on antibiotics because we do not know what were treating with them. She was swabbed negative for the flu in the ER and for group A strep. Coronavirus testing is pending. Based on her presentation, according to CDC guidelines she would be classified as having mild disease if this was COVID. I did not check d-dimer, ferritin, etc., because this would be considered mild disease. Her chest x-ray is clear and she is not hypoxic, having an SPO2 of 98 to 100% on room air and breathing very comfortably. The primary reason for keeping her for observation is because she does have risk factors for severe disease if this turns out to be coronavirus: Immunosuppression, insulin resistance/diabetes, and smoking. (3) Smoker Is this a current diagnosis for this admission?: Yes (4) Psoriatic arthritis Is this a current diagnosis for this admission?: Yes (5) Headache Is this a current diagnosis for this admission?: Yes - Plan Summary Summary: I went ahead and performed an LP on patient earlier given her complaints of dizziness with headache and fever. She tolerated the procedure well. CSF analysis is essentially negative for any infection. Fever work-up includes chest x-ray, urinalysis, dry abdominal CT which were all negative for any infectious source. Flu test is negative. Also elaborate review of systems does not point towards any source of infection at this time. COVID-19 test has been performed and result is pending. At this point, I also favor not starting on any antibiotics as we do not have a clear evidence of bacterial infection at this time. Tylenol and ibuprofen as needed Supportive care Will await blood culture and if negative by tomorrow morning, we will go ahead and discharge patient. - Time Time Spent with patient: 25-34 minutes Anticipated Discharge Disposition: Home, Self Care Anticipated Discharge Timeframe: within 24 hours
--- NOTE | 2020-04-01 21:09 | EKG REPORT ---
SEVERITY:- ABNORMAL ECG - SINUS TACHYCARDIA PROBABLE LEFT ATRIAL ABNORMALITY NONSPECIFIC REPOL ABNORMALITY, LATERAL LEADS : Confirmed by: Lidia Hanson MD 01-Apr-2020 21:09:07
[2020-04-01] MEDS ORDERED: DULOXETINE HCL 30 MG CAPSULE.DR PO SCH (22:00)
--- NOTE | 2020-04-01 22:04 | RADIOLOGY REPORT (SQ) ---
EXAM DESCRIPTION: XR CHEST 1 VIEW COMPLETED DATE/TME: 04/01/2020 00:00 CLINICAL HISTORY: 59 years, Female, sob COMPARISON: X-ray chest 03/31/2020 NUMBER OF VIEWS: TECHNIQUE: LIMITATIONS: None. FINDINGS: No evidence of pulmonary infiltrate or pleural effusion. The heart and mediastinum are unremarkable. Pulmonary vascularity appears normal. There are atherosclerotic changes and tortuosity of the thoracic aorta. There is no significant change, as compared with the prior x-ray(s). IMPRESSION: No acute finding. copyright 2010 [employer]- All Rights Reserved
[2020-04-02] MEDS ORDERED: LEVOTHYROXINE SODIUM 0.1 MG TABLET PO SCH (06:00)
[2020-04-02 06:43] LABS: ABSOLUTE LYMPHOCYTES (AUTO) 1.1 10^3/uL (0.5-4.7); ABSOLUTE MONOCYTES (AUTO) 1.3 10^3/uL (0.1-1.4); BASOPHILS % (AUTO) 0.4 % (0-2); EOSINOPHILS % (AUTO) 0.5 % (0-6); HEMOGLOBIN 11.6 g/dL (12.0-15.5); LYMPHOCYTES % (AUTO) 11.4 % (13-45); MEAN CORPUSCULAR HEMOGLOBIN 28.7 pg (27.0-33.4); MEAN CORPUSCULAR HGB CONC 33.9 g/dL (32.0-36.0); MEAN CORPUSCULAR VOLUME 85 fl (80-97); MONOCYTES % (AUTO) 13.7 % (3-13); PLATELET COUNT 188 10^3/uL (150-450); RED BLOOD COUNT 4.03 10^6/uL (3.72-5.28); TOTAL CELLS COUNTED % (AUTO) 100 %; WHITE BLOOD COUNT 9.4 10^3/uL (4.0-10.5)
[2020-04-02 07:03] LABS: ANION GAP 9 (5-19); BLOOD UREA NITROGEN 13 mg/dL (7-20); CALCIUM 8.1 mg/dL (8.4-10.2); CARBON DIOXIDE 21 mmol/L (22-30); CHLORIDE 107 mmol/L (98-107); GLUCOSE 93 mg/dL (75-110); POTASSIUM 3.4 mmol/L (3.6-5.0)
[2020-04-02] MEDS ORDERED: IBUPROFEN 800 MG TABLET PO PRN (07:40)
[2020-04-02 08:27] VITALS: BP 107/57
[2020-04-02] MEDS ORDERED: IBUPROFEN 400 MG TABLET PO PRN (08:34)
[2020-04-02] MEDS ORDERED: POTASSIUM CHLORIDE 10 MEQ TABLET.ER PO ONE (09:00)
[2020-04-02] MEDS ORDERED: (PENDING PHARMACY ID) (Estradiol [Estrace] 1 MG) PO SCH (10:00)
[2020-04-02 14:27] LABS: C DIFFICILE GDH NEGATIVE (NEGATIVE)
--- NOTE | 2020-04-02 17:05 | PDOC DISCHARGE SUMMARY ---
Impression - Admit/DC Date/PCP Admission Date/Primary Care Provider: 03/31/20 22:25 Discharge Date: 04/02/20 - Discharge Diagnosis (1) Fever Is this a current diagnosis for this admission?: Yes (2) SIRS (systemic inflammatory response syndrome) Is this a current diagnosis for this admission?: Yes (3) Smoker Is this a current diagnosis for this admission?: Yes (4) Psoriatic arthritis Is this a current diagnosis for this admission?: Yes (5) Headache Is this a current diagnosis for this admission?: Yes - Assessment Summary: I went ahead and performed an LP on patient earlier given her complaints of dizziness with headache and fever. She tolerated the procedure well. CSF analysis is essentially negative for any infection. Fever work-up includes chest x-ray, urinalysis, dry abdominal CT which were all negative for any infectious source. Flu test is negative. Also elaborate review of systems does not point towards any source of infection at this time. COVID-19 test has been performed and result is pending. At this point, I also favor not starting on any antibiotics as we do not have a clear evidence of bacterial infection at this time. Tylenol and ibuprofen as needed Supportive care Will await blood culture and if negative by tomorrow morning, we will go ahead and discharge patient. - Additional Information Discharge Diet: Regular Discharge Activity: Activity As Tolerated Prescriptions: Loperamide HCl [Imodium 2 mg Capsule] 2 mg PO Q6HP PRN #15 cap PRN Reason: Home Medications: Duloxetine HCl [Cymbalta] 30 mg PO QHS 06/27/18 Estradiol [Estrace] 1 mg PO DAILY 06/27/18 Meloxicam 15 mg PO DAILY 06/27/18 Levothyroxine Sodium [Levoxyl] 100 mcg PO Q6AM 11/21/19 Liraglutide [Saxenda] 1 dose SUBCUT .QWEEKLY 11/21/19 Ibuprofen [Motrin 400 mg Tablet] 400 mg PO Q8HP PRN tablet 04/02/20 Loperamide HCl [Imodium 2 mg Capsule] 2 mg PO Q6HP PRN #15 cap 04/02/20 History of Present Illiness History of Present Illness: According to admitting provider: OMERO MONAHAN is a 59 year old female with a history of psoriatic arthritis, insulin resistance (but she denies having diabetes), and a current every day smoker, who presents with headache since yesterday. She describes it as very sharp and towards the back of her head. She said she felt bad today and had body aches and so she took her temperature and apparently had a fever of 103 Fahrenheit at home. She has not had any cough. She has not had any shortness of breath or dyspnea. She has not had any abdominal pain, nausea, or vomiting, but said she is not really had much of an appetite today. No dysuria. No flank pain. No chest pain. No breaks in the skin. She had history of a spinal fusion done in 2007 but she said her back pain has not been any worse than usual. No photophobia. She had a leukocytosis in the ER but the rest of her labs were normal. Chest x-ray was negative. Abdominal CT was negative. Head CT was negative. She lives at home with her significant other and that is the only person that she has been around lately and he has not been sick. Hospital Course Hospital Course: Patient was admitted to the hospital for evaluation of fever. Patient has blurred service criteria but no identifiable source of infection was noted. CBC showed leukocytosis. Patient was febrile several times upon admission on January 30 day of admission. Patient complained of quite significant headache and some generalized body aches but these were her only symptoms. Thorough review of system was otherwise negative. Chest x-ray was negative. Urinalysis was negative. Influenza and strep throat testing was negative. Blood cultures are negative at [address] of the abdomen and pelvis without contrast was done which was negative in the ER. Given the limited symptoms of headache and fever, and negative review of systems unidentifiable source, lumbar puncture was performed which turned out to be negative. Patient was treated with ibuprofen and Tylenol as needed for fevers. She did receive a dose of antibiotics in the ER but antibiotics was not continued throughout hospitalization. Patient was COVID tested on admission. Today, patient developed diarrhea. Stool was sent for C. difficile testing which was negative. Today, patient's fevers seem to have stopped and she feels well. Leukocytosis has resolved. She states she feels a lot better than when she initially presented. Patient was discharged on Imodium as needed for diarrhea. As no identifiable infectious source, patient has been discharged without any antibiotics. Fever is technically of unknown origin at this point. Patient is to treat herself supportively and stay hydrated. She is to take Imodium as needed. She is to self isolate until she gets the results of her COVID-19 test. Physical Exam Vital Signs: Temp Pulse Resp BP Pulse Ox 98.4 F 70 22 H 107/57 L 98 04/02/20 14:34 04/02/20 14:34 04/02/20 14:34 04/02/20 14:34 04/02/20 14:34 Intake & Output 04/01/20 04/02/20 04/03/20 06:59 06:59 06:59 Intake Total 3050 2604 Balance 3050 2604 Weight 78.1 kg 79.4 kg General appearance: PRESENT: no acute distress, cooperative Neck exam: ABSENT: JVD Respiratory exam: PRESENT: clear to auscultation [place]ona, symmetrical, unlabored. ABSENT: tachypnea Cardiovascular exam: PRESENT: RRR, +S1, +S2. ABSENT: tachycardia GI/Abdominal exam: PRESENT: soft. ABSENT: rebound, rigid, tenderness Neurological exam: PRESENT: alert, awake, oriented to person, oriented to place, oriented to time Results Laboratory Results: WBC 9.4 10^3/uL (4.0-10.5) 04/02/20 06:06 RBC 4.03 10^6/uL (3.72-5.28) 04/02/20 06:06 Hgb 11.6 g/dL (12.0-15.5) L 04/02/20 06:06 Hct 34.0 % (36.0-47.0) L 04/02/20 06:06 MCV 85 fl (80-97) 04/02/20 06:06 MCH 28.7 pg (27.0-33.4) 04/02/20 06:06 MCHC 33.9 g/dL (32.0-36.0) 04/02/20 06:06 RDW 16.0 % (11.5-14.0) H 04/02/20 06:06 Plt Count 188 10^3/uL (150-450) 04/02/20 06:06 Lymph % (Auto) 11.4 % (13-45) L 04/02/20 06:06 [place] % (Auto) 13.7 % (3-13) H 04/02/20 06:06 Eos % (Auto) 0.5 % (0-6) 04/02/20 06:06 Baso % (Auto) 0.4 % (0-2) 04/02/20 06:06 Absolute Neuts (auto) 7.0 10^3/uL (1.7-8.2) 04/02/20 06:06 Absolute Lymphs (auto) 1.1 10^3/uL (0.5-4.7) 04/02/20 06:06 Absolute Monos (auto) 1.3 10^3/uL (0.1-1.4) 04/02/20 06:06 Absolute Eos (auto) 0.0 10^3/uL (0.0-0.6) 04/02/20 06:06 Absolute Basos (auto) 0.0 10^3/uL (0.0-0.2) 04/02/20 06:06 Seg Neutrophils % 74.0 % (42-78) 04/02/20 06:06 PT 14.0 SEC (11.4-15.4) 03/31/20 14:37 INR 1.06 03/31/20 14:37 VBG pH 7.34 (7.30-7.42) 03/31/20 14:37 VBG pCO2 46.3 mmHg (35-63) 03/31/20 14:37 VBG HCO3 24.3 mmol/L (20-32) 03/31/20 14:37 VBG Base Excess -1.8 mmol/L 03/31/20 14:37 Sodium 136.5 mmol/L (137-145) L 04/02/20 06:06 Potassium 3.4 mmol/L (3.6-5.0) L 04/02/20 06:06 Chloride 107 mmol/L (98-107) 04/02/20 06:06 Carbon Dioxide 21 mmol/L (22-30) L 04/02/20 06:06 Anion Gap 9 (5-19) 04/02/20 06:06 BUN 13 mg/dL (7-20) 04/02/20 06:06 Creatinine 0.62 mg/dL (0.52-1.25) 04/02/20 06:06 Est GFR ( Amer) > 60 (>60) 04/02/20 06:06 Est GFR (MDRD) Non-Af > 60 (>60) 04/02/20 06:06 Glucose 93 mg/dL (75-110) 04/02/20 06:06 POC Glucose 105 mg/dL (70-110) 04/02/20 07:22 Lactic Acid 0.6 mmol/L (0.7-2.1) L 03/31/20 17:18 Calcium 8.1 mg/dL (8.4-10.2) L 04/02/20 06:06 Total Bilirubin 0.6 mg/dL (0.2-1.3) 03/31/20 14:37 Direct Bilirubin 0.3 mg/dL (0.0-0.4) 03/31/20 14:37 Neonat Total Bilirubin Not Reportable 03/31/20 14:37 Neonat Direct Bilirubin Not Reportable 03/31/20 14:37 Neonat Indirect Bili Not Reportable 03/31/20 14:37 AST 144 U/L (14-36) H 03/31/20 14:37 ALT 94 U/L (<35) H 03/31/20 14:37 Alkaline Phosphatase 110 U/L (38-126) 03/31/20 14:37 Total Protein 7.8 g/dL (6.3-8.2) 03/31/20 14:37 Albumin 4.5 g/dL (3.5-5.0) 03/31/20 14:37 Urine Color YELLOW 03/31/20 18:38 Urine Appearance SLIGHTLY-CLOUDY 03/31/20 18:38 Urine pH 5.0 (5.0-9.0) 03/31/20 18:38 Ur Specific [place] 1.014 03/31/20 18:38 Urine Protein NEGATIVE mg/dL (NEGATIVE) 03/31/20 18:38 Urine Glucose (UA) NEGATIVE mg/dL (NEGATIVE) 03/31/20 18:38 Urine Ketones TRACE mg/dL (NEGATIVE) H 03/31/20 18:38 Urine Blood MODERATE (NEGATIVE) H 03/31/20 18:38 Urine Nitrite NEGATIVE (NEGATIVE) 03/31/20 18:38 Urine Bilirubin NEGATIVE (NEGATIVE) 03/31/20 18:38 Urine Urobilinogen NEGATIVE mg/dL (<2.0) 03/31/20 18:38 Ur Leukocyte Esterase NEGATIVE (NEGATIVE) 03/31/20 18:38 Urine WBC (Auto) 3 /HPF 03/31/20 18:38 Urine RBC (Auto) 11 /HPF 03/31/20 18:38 Urine Bacteria (Auto) 1+ /HPF 03/31/20 18:38 Squamous Epi Cells Auto 4 /HPF 03/31/20 18:38 Calcium Oxalate Cr Auto MANY /HPF 03/31/20 14:17 Urine Mucus (Auto) RARE /LPF 03/31/20 18:38 Urine Ascorbic Acid NEGATIVE (NEGATIVE) 03/31/20 18:38 Fluid Tube Number 3 04/01/20 13:00 Fluid LDH Cancelled 04/01/20 13:00 CSF Volume 9.0 CC 04/01/20 13:00 CSF Appearance CLEAR 04/01/20 13:00 CSF Color COLORLESS 04/01/20 13:00 CSF WBC 1 /uL (0-5) 04/01/20 13:00 CSF RBC 1 /uL (0-10) 04/01/20 13:00 CSF Glucose 74 mg/dL (40-70) H 04/01/20 13:00 CSF Total Protein 32 mg/dL (12-60) 04/01/20 13:00 Stl C. Difficile GDH Ag NEGATIVE (NEGATIVE) 04/02/20 10:12 Stl C.difficile Tox A&B NEGATIVE (NEGATIVE) 04/02/20 10:12 Herpes Simplex Source Cancelled 04/01/20 13:00 HSV I DNA PCR Cancelled 04/01/20 13:00 HSV II DNA PCR Cancelled 04/01/20 13:00 Influenza A (Rapid) NEGATIVE (NEGATIVE) 03/31/20 16:00 Influenza B (Rapid) NEGATIVE (NEGATIVE) 03/31/20 16:00 Group A Strep Rapid NEGATIVE (NEGATIVE) 03/31/20 14:17 Ana Cristina Ink Cancelled 04/01/20 13:00 Impressions: Chest X-Ray 03/31/20 14:20 IMPRESSION: NO ACUTE RADIOGRAPHIC FINDING IN THE CHEST. Head CT 03/31/20 14:37 IMPRESSION: NORMAL BRAIN CT WITHOUT CONTRAST. EVIDENCE OF ACUTE STROKE: NO. Abdomen/Pelvis CT 03/31/20 18:19 IMPRESSION: NO SIGNIFICANT OR ACUTE PROCESS IN THE ABDOMEN OR PELVIS. Chest X-Ray 04/01/20 00:00 IMPRESSION: No acute finding. copyright 2011 [employer]- All Rights Reserved Plan Time Spent: Less than 30 Minutes Stroke Is this a Stroke Patient?: No Acute Heart Failure - Is this a Heart Failure Patient?: No
== END 2020-04-02 14:52 | disposition home or self-care (01) ==
LOC: ER 14:00 → EH 22:25 → 3N 04-01 00:55
PROVIDERS: ADMIT Family Medicine; ATTEND Family Medicine
PROC: 009U3ZX Drainage of Spinal Canal, Percutaneous Approach, Diagnostic (ICD-10-PCS; principal; 2020-04-01)
DX: R50.9 Fever, unspecified (principal); R65.10 Systemic inflammatory response syndrome (SIRS) of non-infectious origin without acute organ dysfunction; L40.50 Arthropathic psoriasis, unspecified; R51 Headache; R42 Dizziness and giddiness; D72.829 Elevated white blood cell count, unspecified; R19.7 Diarrhea, unspecified; F17.200 Nicotine dependence, unspecified, uncomplicated; Z20.828 Contact with and (suspected) exposure to other viral communicable diseases; Z79.899 Other long term (current) drug therapy; Z98.1 Arthrodesis status; Z88.0 Allergy status to penicillin
CPT/HCPCS: 62270; 93005 ×2; 99285; 96361; 96365; 36415 ×3; 87040; 87070 ×2; 87086; 87205; 87880; 82962 ×3; 83605; 85025 ×2; 85027; 85610; 89050; 82945; 84157; 87635; 80048 ×2; 80053; 81001; 82803; 87804; 87324; 87449; 71045 ×2; 70450; 74176; 93010 ×2; G0378 ×4; J1170; J2060; J3490 ×2; J7030 ×2; J0696; C9803